=== PATIENT | female | born 1965 | race Caucasian/White ===

== ENCOUNTER → 2016-04-19 | Outpatient (CLI) | payer OTHER ==
[~2016-04-19] MED LIST: ACET-1101 PO; BND25CL PO; CIPR-255 PO; CLON0.1D5 TD; CLON0.5T3 PO; CLOP1TAB15 PO; CLR10 PO; DLC5 PO; ENAL1TAB31 PO; ESTR1.252 PO; FLUT0.15 NAE; FURO-85 PO; HYDR25TA4 PO; INSPMPNVLG; LINA1CAP PO; MAGN400T5 PO; PROM25TA9 PO; ROPI2TAB6 PO; ROSU20TA PO
--- NOTE | 2016-04-19 13:34 | MAMMOGRAPHY REPORT ---
BILATERAL DIGITAL SCREENING MAMMOGRAM TOMOSYNTHESIS WITH CAD: 04/19/2016 CLINICAL HISTORY: Routine screening. Patient has no complaints. TECHNIQUE: Breast tomosynthesis in addition to standard 2D mammography was performed. Current study was also evaluated with a Computer Aided Detection (CAD) system. COMPARISON: Comparison is made to exams dated: 04/16/2015 mammogram, 04/08/2014 mammogram, 07/28/2013 u ltrasound, 02/15/2011 mammogram, 04/03/2013 mammogram - [facility], and 06/30/2008. BREAST COMPOSITION: The tissue of both breasts is heterogeneously dense, which may obscure small ma sses. FINDINGS: No suspicious masses, calcifications, or areas of architectural distortion are noted in e ither breast. There has been no significant interval change compared to prior exams. IMPRESSION: ACR BI-RADS CATEGORY 1: NEGATIVE There is no mammographic evidence of malignancy. A 1 year screening mammogram is recommended. The p atient will receive written notification of the results. Approximately 10% of breast cancers are not detected with mammography. A negative mammographic repor t should not delay biopsy if a clinically suggestive mass is present. Salma Cleaning M.D. ah/:04/19/2016 07:45:13 [employer] Press[employer]: Karlee Hernandez RT(R)(M), [facility] letter sent: Normal 1/2 BI-RADS Code: ACR BI-RADS Category 1: Negative
== END | disposition home or self-care (01) ==
LOC: C.MAMM 07:27
PROVIDERS: ATTEND Obstetrics & Gynecology
DX: Z12.31 Encounter for screening mammogram for malignant neoplasm of breast (principal)

== ENCOUNTER → 2016-06-07 | Outpatient (CLI) | payer OTHER ==
[~2016-06-07] MED LIST changes: +BENZ100C84 PO; -BND25CL PO; +CEPH500C PO; +DIPH25CA48 PO; +LIRA18IN INJ; +METO-157 PO; +PRM9 PO; +VNTHFA/IN INH
== END | disposition home or self-care (01) ==
LOC: C.PAPS 08:51
PROVIDERS: ATTEND Obstetrics & Gynecology
DX: Z01.419 Encounter for gynecological examination (general) (routine) without abnormal findings (principal)

== ENCOUNTER 2017-01-24 22:04 | Emergency (ER) | payer OTHER ==
[~2017-01-24] VITALS: Ht 162.6 cm; Wt 83.4 kg
[~2017-01-24 22:04] MED LIST changes: -BENZ100C84 PO; -CEPH500C PO; -LIRA18IN INJ; -METO-157 PO; -PRM9 PO; -VNTHFA/IN INH
[2017-01-24 22:08] VITALS: Ht 162.6 cm; Wt 83.4 kg
[2017-01-24] MEDS ORDERED: BENZ100C84 PO (22:42)
[2017-01-24] MEDS ORDERED: PRM9 PO (22:42)
[2017-01-24] MEDS ORDERED: CLR10 PO (22:42)
[2017-01-24] MEDS ORDERED: METO-157 PO (22:42)
[2017-01-24] MEDS ORDERED: LIRA18IN INJ (22:42)
[2017-01-24] MEDS ORDERED: VNTHFA/IN INH (22:42)
[2017-01-24 23:11] LABS: BASO % 0.6 %; BASO ABS # 0.04 K/uL (0-0.2); COMPLETE YES; EOS % 1.1 %; HEMATOCRIT 38.5 % (37-47); IG% 0.2 %; LYMPH % 30.9 %; LYMPH ABS # 1.91 K/uL (1.2-3.4); MEAN CELL VOLUME 85.6 fL (80-100); MEAN CORPUSCULAR HEMOGLOBIN 28.2 pg (25-34); MEAN PLATELET VOLUME 9.4 fL (7.4-10.4); MONO % 10.8 %; NEUT % 56.4 %; PLATELET COUNT 259 K/uL (130-400); WHITE BLOOD COUNT 6.19 K/uL (4.8-10.8)
--- NOTE | 2017-01-24 23:18 | DIAGNOSTIC IMAGING REPORT ---
R FOOT MIN 3 VIEWS ROUTINE HISTORY: 51 years-old Female right foot pain at mtp acute mid right foot pain without reported trauma COMPARISON: None available TECHNIQUE: 3 views of the right foot FINDINGS: Bipartite medial and lateral hallux sesamoids. No acute fracture or dislocation identified. Mild marginal spurring of the talonavicular joint. No advanced degenerative changes are seen. There is mild soft tissue swelling diffusely about the foot. Vascular calcifications are noted. IMPRESSION: 1. Soft tissue swelling without acute bony abnormality. 2. Peripheral vascular disease. The above report was generated using voice recognition software. It may contain grammatical, syntax or spelling errors. Electronically signed by: Rodger Geronimo M.D. 01/24/2017 11:17 PM Dictated Date/Time: 01/24/2017 11:15 PM
[2017-01-24 23:33] LABS: BUN/CREATININE RATIO 11.8 (10-20); C-REACTIVE PROTEIN 0.55 mg/dl (0-0.29); CALCIUM 8.4 mg/dl (8.5-10.1); CREATININE 0.9 mg/dl (0.60-1.20); POTASSIUM 3.4 mmol/L (3.5-5.1); URIC ACID 3.6 mg/dl (2.6-7.2)
[2017-01-24 23:36] LABS: ALB/GLOB RATIO 0.7 (0.9-2)
[2017-01-24 23:52] VITALS: TEMP 36.8
[2017-01-25] MEDS ORDERED: CEFTRIAXONE SOD INJ 1 GM ADDVIAL IV STA (00:06)
[2017-01-25] MEDS ORDERED: CEPH500C PO (00:13)
--- NOTE | 2017-01-25 00:41 | EMERGENCY ROOM VISIT NOTE ---
History First contact with patient: 22:24 Chief Complaint: FOOT PAIN Stated Complaint: TENDONITIS RIGHT History of Present Illness The patient is a 51 year old female who presents to the Emergency Room with complaints of pain and swelling of her right foot. The patient has been following with orthopedics for a right foot tendinitis. She has been wearing a walking boot, and believes that her symptoms have been improving. She states tonight she noticed redness and swelling along the MTP joint. She is diabetic with neuropathy, and does not describe distinct pain. She is concerned for possible infection or gout based on the location and she is able to ambulate. She has not had fever or chills. No past history of gout. She rates her current discomfort a 2/10. Review of Systems More than 10 systems were reviewed and otherwise negative with the exception of history of present illness. Past Medical/Surgical History Medical Problems: (1) Diabetic neuropathy (2) Gastric Pacemaker (3) Gastroparesis Family History Hypertension Social History Smoking Status: Never Smoker Marital Status: Housing Status: lives with family Occupation Status: employed Current/Historical Medications Scheduled Cephalexin Monohydrate (Keflex), 500 MG PO TID Clonazepam (Klonopin), 0.5 MG PO BID Clonidine Hcl (Catapres-Tts), 1 PATCH TD WK Clopidogrel (Plavix), 75 MG PO DAILY Enalapril Maleate (Vasotec), 20 MG PO DAILY Estrogens, Conjugated (Premarin), 0.9 MG PO DAILY Furosemide (Lasix), 20 MG PO Q2D Hydrochlorothiazide (Hctz), 25 MG PO Q2D Insulin Aspart (novoLOG INSULIN PUMP ), 60-70 UNITS DAILY Liraglutide (Victoza), 1.2 MG INJ DAILY Metoclopramide (Reglan), 10 MG PO BID Ropinirole (Requip), 2 MG PO TID Rosuvastatin Calcium (Crestor), 20 MG PO DAILY Scheduled PRN Acetaminophen W/ Codeine (Tylenol W/Codeine #3), 1 TAB PO Q8 PRN for Pain Albuterol Hfa (Ventolin Hfa), 2-4 PUFFS INH Q6H PRN for SOB/Wheezing Benzonatate (Tessalon Perles), 100 MG PO TID PRN for Cough Diphenhydramine HCl (Diphenhydramine HCl), 25 MG PO Q8 PRN for Itching Loratadine (Claritin), 10 MG PO DAILY PRN for Seasonal Allergies Promethazine Hcl (Phenergan), 25 MG PO Q4-6 HRS PRN for Nausea or Vomiting Physical Exam Vital Signs Date Time Temp Pulse Resp B/P (MAP) Pulse Ox O2 Delivery O2 Flow Rate FiO2 01/24/17 23:52 36.8 83 16 138/69 98 Room Air 01/24/17 22:08 36.6 85 18 154/83 98 Room Air Physical Exam VITALS: Vitals are noted on the nurse's note and reviewed by myself. Vital signs stable. GENERAL: Well-developed, well-nourished, white female, who is in no acute distress and resting comfortably. Patient is cooperative with the examination. HEART: Regular rate and rhythm without murmurs gallops or rubs. LUNGS: Clear to auscultation bilaterally without wheezes, rales or rhonchi. No retractions or accessory muscle use. MUSCULOSKELETAL: There is mild edema and erythema at the first MTP joint on the right, as well as the plantar aspect in this distribution. There is slight redness. No lymphangitic streaking. The patient does have sensation to the distal toes. Range of motion of the toes and ankle appears normal. Medical Decision & Procedures ER Provider Diagnostic Interpretation: R FOOT MIN 3 VIEWS ROUTINE HISTORY: 51 years-old Female right foot pain at mtp acute mid right foot pain without reported trauma COMPARISON: None available TECHNIQUE: 3 views of the right foot FINDINGS: Bipartite medial and lateral hallux sesamoids. No acute fracture or dislocation identified. Mild marginal spurring of the talonavicular joint. No advanced degenerative changes are seen. There is mild soft tissue swelling diffusely about the foot. Vascular calcifications are noted. IMPRESSION: 1. Soft tissue swelling without acute bony abnormality. 2. Peripheral vascular disease. Laboratory Results 01/24/17 22:45 Red Blood Count 4.50, Mean Corpuscular Volume 85.6, Mean Corpuscular Hemoglobin 28.2, Mean Corpuscular Hemoglobin Concent 33.0, Mean Platelet Volume 9.4, Neutrophils (%) (Auto) 56.4, Lymphocytes (%) (Auto) 30.9, Monocytes (%) (Auto) 10.8, Eosinophils (%) (Auto) 1.1, Basophils (%) (Auto) 0.6, Neutrophils # (Auto ) 3.49, Lymphocytes # (Auto) 1.91, Monocytes # (Auto) 0.67, Eosinophils # (Auto ) 0.07, Basophils # (Auto) 0.04 01/24/17 22:45 Test 01/24/17 22:45 White Blood Count 6.19 K/uL (4.8-10.8) Red Blood Count 4.50 M/uL (4.2-5.4) Hemoglobin 12.7 g/dL (12.0-16.0) Hematocrit 38.5 % (37-47) Mean Corpuscular Volume 85.6 fL (80-100) Mean Corpuscular Hemoglobin 28.2 pg (25-34) Mean Corpuscular Hemoglobin Concent 33.0 g/dl (32-36) Platelet Count 259 K/uL (130-400) Mean Platelet Volume 9.4 fL (7.4-10.4) Neutrophils (%) (Auto) 56.4 % Lymphocytes (%) (Auto) 30.9 % Monocytes (%) (Auto) 10.8 % Eosinophils (%) (Auto) 1.1 % Basophils (%) (Auto) 0.6 % Neutrophils # (Auto) 3.49 K/uL (1.4-6.5) Lymphocytes # (Auto) 1.91 K/uL (1.2-3.4) Monocytes # (Auto) 0.67 K/uL (0.11-0.59) Eosinophils # (Auto) 0.07 K/uL (0-0.5) Basophils # (Auto) 0.04 K/uL (0-0.2) RDW Standard Deviation 37.3 fL (36.4-46.3) RDW Coefficient of Variation 12.0 % (11.5-14.5) Immature Granulocyte % (Auto) 0.2 % Immature Granulocyte # (Auto) 0.01 K/uL (0.00-0.02) Erythrocyte Sedimentation Rate 25 mm/hr (0-21) Anion Gap 4.0 mmol/L (3-11) Est Creatinine Clear Calc Drug Dose 77.3 ml/min Estimated GFR () 85.8 Estimated GFR (Non- 74.0 BUN/Creatinine Ratio 11.8 (10-20) Uric Acid 3.6 mg/dl (2.6-7.2) Calcium Level 8.4 mg/dl (8.5-10.1) Total Bilirubin 0.7 mg/dl (0.2-1) Aspartate Amino Transf (AST/SGOT) 15 U/L (15-37) Alanine Aminotransferase (ALT/SGPT) 15 U/L (12-78) Alkaline Phosphatase 82 U/L (45-117) C-Reactive Protein 0.55 mg/dl (0-0.29) Total Protein 7.1 gm/dl (6.4-8.2) Albumin 3.0 gm/dl (3.4-5.0) Globulin 4.1 gm/dl (2.5-4.0) Albumin/Globulin Ratio 0.7 (0.9-2) Medications Administered Medications (Trade) Dose Ordered Sig/Igor Route Start Time Stop Time Status Last Admin Dose Admin Ceftriaxone Sodium (Rocephin Inj) 1 gm NOW STAT IV 01/25/17 00:06 01/25/17 00:08 DC 01/25/17 00:20 1 GM ED Course Physical exam and history were performed. Nursing notes, EMR, and Medication List were personally reviewed. Patient appears to have right foot pain and swelling and redness for essentially the past one day. She has been wearing a walking boot for tendinitis in this area. X-ray was performed and does not show acute bony abnormality. IV access was established and labs were obtained. The patient's blood work is as above and was reviewed. She does not have a significantly elevated white blood cell count, gross anemia, bandemia, or significant electrolyte imbalance. Uric acid is negative. Sedimentation rate and CRP are slightly elevated. Overall the patient does appear well for discharge home. I do not suspect a distinct joint infection or gout. There is no concern for osteomyelitis at this point. The patient may be developing an early cellulitis in this area, which could be from the walking boot rubbing in this area. I will give her a dose of IV Rocephin here in the department, and a continuation course of Keflex. The patient is already followed with orthopedics, and I will refer her back to their service. She was otherwise invited back to the ER with any new, worsening, or concerning symptoms. The chart was completed utilizing [employer] Voice Recognition Software. Grammatical errors, random word insertions, pronoun errors, and incomplete sentences are an occasional consequence of this system due to software limitations, ambient noise, and hardware issues. Any formal questions or concerns about the content, text, or information contained within the body of this dictation should be directly addressed to the provider for clarification. . Medical Decision Differential diagnosis: Etiologies such as cellulitis, abscess, osteomyelitis, tendinitis, MRSA infection, DVT, necrotizing fasciitis, dermatitis, drug eruption, as well as others were entertained.. Blood Pressure Screening Blood pressure disposition: Elevated BP felt to be situational, Referred to PCP Impression Primary Impression: Right foot pain Departure Information Dispostion Home / Self-Care Prescriptions Cephalexin Monohydrate (Keflex) 500 Mg Cap 500 MG PO TID for 7 Days, #21 CAP Prov: Calos Artis PA-C 01/25/17 Forms HOME CARE DOCUMENTATION FORM, IMPORTANT VISIT INFORMATION Patient Instructions My [facility] Additional Instructions You were seen and evaluated today on an emergency basis only. This is not a substitute for, or an effort to provide, complete comprehensive medical care. It is not possible to recognize and treat all injuries or illnesses in a single emergency department visit. For this reason it is recommended that you followup with orthopedics within the next week for recheck of your condition. Call in the morning and let them know you were seen in the ER to help arrange for an appointment. Cephalexin(Keflex) 500mg: Take one pill 3 times daily for 7 days for possible infection. All antibiotics can cause diarrhea. If this occurs and you feel worse or it does not resolve in 1-2 days follow up with your doctor or return to the Emergency Department as this could be signs of serious underlying problems. Any medication can cause an allergic reaction, stop the pills immediately and return to the ER for rash, hives, breathing difficulties, or swelling. You are welcome to return to the emergency department anytime with new, worsening, or concerning symptoms.
[2017-01-25 00:45] VITALS: BP 128/59; PULSE 82; O2SAT 98
== END 2017-01-25 00:46 | disposition home or self-care (01) ==
LOC: C.EDB 22:05 → C.EDC 01-25 00:46
DX: M79.671 Pain in right foot (principal); E11.40 Type 2 diabetes mellitus with diabetic neuropathy, unspecified; K31.84 Gastroparesis; Z79.4 Long term (current) use of insulin; Z79.899 Other long term (current) drug therapy; Z82.49 Family history of ischemic heart disease and other diseases of the circulatory system

== ENCOUNTER → 2017-06-07 | Outpatient (CLI) | payer OTHER ==
[~2017-06-07] MED LIST changes: +BENZ100C84 PO; -CIPR-255 PO; -DLC5 PO; -ESTR1.252 PO; -FLUT0.15 NAE; -LINA1CAP PO; +LIRA18IN INJ; -MAGN400T5 PO; +METO-157 PO; +PRM9 PO; +VNTHFA/IN INH
--- NOTE | 2017-06-08 07:46 | MAMMOGRAPHY REPORT ---
BILATERAL DIGITAL SCREENING MAMMOGRAM TOMOSYNTHESIS WITH CAD: 06/07/2017 CLINICAL HISTORY: Routine screening. Patient has no complaints. TECHNIQUE: Breast tomosynthesis in addition to standard 2D mammography was performed. Current study was also evaluated with a Computer Aided Detection (CAD) system. COMPARISON: Comparison is made to exams dated: 04/19/2016 mammogram, 04/16/2015 mammogram, 04/08/2014 m ammogram, 07/28/2013 ultrasound, 04/03/2013 mammogram, and 02/15/2011 mammogram - [facility] [address] [facility]. BREAST COMPOSITION: The tissue of both breasts is heterogeneously dense, which may obscure small mas ses. FINDINGS: No suspicious masses, calcifications, or areas of architectural distortion are noted in ei ther breast. There has been no significant interval change compared to prior exams. Scattered bilater al benign-appearing calcifications are not significantly changed. IMPRESSION: ACR BI-RADS CATEGORY 2: BENIGN There is no mammographic evidence of malignancy. A 1 year screening mammogram is recommended. The pa tient will receive written notification of the results. Approximately 10% of breast cancers are not detected with mammography. A negative mammographic report should not delay biopsy if a clinically suggestive mass is present. aSlma Cleaning M.D. /:06/07/2017 14:26:11 Contact Clerk: Karlee RIVERA)(M), [facility] letter sent: Normal 1/2 BI-RADS Code: ACR BI-RADS Category 2: Benign
== END | disposition home or self-care (01) ==
LOC: C.MAMM 13:47
PROVIDERS: ATTEND Obstetrics & Gynecology
DX: Z12.31 Encounter for screening mammogram for malignant neoplasm of breast (principal)

== ENCOUNTER → 2017-10-02 | Day surgery (SDC) | payer OTHER ==
[2017-09-26 14:10] VITALS: Ht 162.6 cm; Wt 75.9 kg
[~2017-10-02] VITALS: Ht 162.6 cm; Wt 75.9 kg
[~2017-10-02] MED LIST changes: +AMT24 PO; -BENZ100C84 PO; -CLON0.5T3 PO; +DEXTROSE 50% 50 ML SYR ONE; +DIPH1TAB87 PO; -DIPH25CA48 PO; +FLUT0.15 NAE; -HYDR25TA4 PO; +KLN/5 PO; +LIDOCAINE HCL 2% 2 ML VIAL (20MG/ML) ONE; +MIDAZOLAM HCL 1 MG/ML 2ML VIAL ONE; +ONDA4TAB46 PO; +ONDANSETRON INJ 2 MG/ML 2 ML VIAL ONE; +PROPOFOL IV EMULSION 10 MG/ML 20 ML VIAL ONE; +SALI0.6510 NAE
[2017-10-02 13:14] VITALS: TEMP 36.6
--- NOTE | 2017-10-02 14:02 | Endo History and Physical ---
History & Physical Date of Service: Oct 02, 2017. Chief Complaint: Colitis Referring Physician: Dr Lynn Ha ([facility]), Dr Aguillon. History of Present Illness 52 yo presenting for colonoscopy for evaluation of abnormal CT scan and ischemic colitis in the past. Past Medical History Diabetes, Asthma, Hypertension Past Surgical History Hx Cardiac Surgery: No Hx Abdominal Surgery: Yes (Gastric Pacemaker, LAP TEJAS, APPY, MELO BSO, BOWEL OBSTRUCTION SX) Hx of Implantable Prosthesis: No Hx Post-Op Nausea and Vomiting: No Hx Cancer Surgery: No Hx Thoracic Surgery: No Hx Orthopedic: No Hx Urinary Tract Surgery: No Family History None Social History Smoking Status: Never Smoker Hx Substance Use: No Hx Alcohol Use: Yes (Occassional wine) Allergies Coded Allergies: Aspirin (Verified Allergy, Severe, SWELLING, 10/02/17) SWELLING Ibuprofen (Verified Allergy, Severe, SWELLING, 10/02/17) Penicillins (Verified Allergy, Severe, SWELLING, 10/02/17) SWELLING Iodine (Verified Allergy, Mild, ITCHY, 10/02/17) Adhesives (Verified Allergy, Unknown, TAPE, 10/02/17) Sulfamethoxazole w/Trimethoprim (Verified Allergy, Unknown, unknown, ) Current Medications Reported Home Medications Medications Dose Route/Sig Max Daily Dose Days Date Category Dose Instructions [place] Nasal [place] (Saline) 0.65 % Spr 2 Sprays SARAN DAILY PRN 09/26/17 Reported Benadryl Allergy (Diphenhydramine Hcl) 25 Mg Tab 1 Tab PO DAILY PRN 09/26/17 Reported Lasix (Furosemide) 20 Mg Tab 20 Mg PO Q2D 09/26/17 Reported Flonase Allergy Relief (Fluticasone Propionate (Nasal)) 50 Mcg/Act Spr 2 Sprays SARAN DAILY PRN 09/26/17 Reported Zofran (Ondansetron HCl) 4 Mg Tab 4 Mg PO Q8 PRN 09/26/17 Reported Amitiza (Lubiprostone) 24 Mcg Cap 24 Mcg PO BID 09/26/17 Reported Victoza (Liraglutide) 18 Mg/3 Ml Inj 1.2 Mg INJ DAILY 01/24/17 Reported Ventolin Hfa (Albuterol) 200 Puffs/50025 Mcg Aers 2-4 Puffs INH Q6H PRN 01/24/17 Reported Reglan (Metoclopramide HCl) 10 Mg Tab 10 Mg PO BID 01/24/17 Reported Claritin (Loratadine) 10 Mg Tab 10 Mg PO DAILY PRN 01/24/17 Reported Premarin (Estrogens, Conjugated) 0.9 Mg Tab 0.9 Mg PO DAILY 90 01/24/17 Reported novoLOG INSULIN PUMP (Insulin Aspart) 1 Ea Inj 60-70 Units DAILY 12/16/14 Reported via insulin pump Catapres-Tts (Clonidine Hcl) 0.1 Mg/24 Hr Dis 1 Patch TD WK 12/16/14 Reported Tylenol W/Codeine #3 (Acetaminophen W/ Codeine) 1 Tab Tab 1 Tab PO Q8 PRN 12/16/14 Reported Vasotec (Enalapril Maleate) 20 Mg Tab 20 Mg PO DAILY 12/16/14 Reported Requip (Ropinirole HCl) 2 Mg Tab 2 Mg PO TID 12/16/14 Reported Phenergan (Promethazine HCl) 25 Mg Tab 25 Mg PO Q4-6 HRS PRN 12/16/14 Reported Crestor (Rosuvastatin Calcium) 20 Mg Tab 20 Mg PO DAILY 12/16/14 Reported Plavix (Clopidogrel Bisulfate) 75 Mg Tab 75 Mg PO DAILY 11/05/10 Reported Klonopin (Clonazepam) 0.5 Mg Tab 0.5 Mg PO BID 07/18/08 Reported Vital Signs Weight (Kilograms): 75.91 Height (Feet): 5 Height (Inches): 4 Date Time Temp Pulse Resp B/P (MAP) Pulse Ox O2 Delivery O2 Flow Rate FiO2 10/02/17 13:14 36.6 84 18 158/77 (104) 99 Room Air Physical Exam General Appearance: WD/WN, no apparent distress Respiratory/Chest: Respiratory effort: no dyspnea Auscultation: breath sounds normal, CTA except as noted Cardiovascular: Apical Impulse: not displaced Heart Auscultation: RRR, normal S1, normal S2 Abdomen: Bowel Sounds: normal Inspection & Palpation: soft, non-distended, no tenderness, guarding & rebound Assessment and Plan 52 yo presenting for evaluation of prior ischemic colitis, chronic constipation , and gastroparesis.
--- NOTE | 2017-10-02 14:49 | GI REPORT ---
Patient Name: Chari Stokes Procedure Date: 10/02/2017 2:12 PM Date of : 1965 Admit Type: Outpatient Age: 52 Gender: Female Attending MD: Lico Wesley MD Procedure: Colonoscopy Providers: Lico Wesley MD Referring MD: Pedro Aguillon Indications: Abnormal CT of the GI tract Medicines: Monitored Anesthesia Care Complications: No immediate complications. Estimated blood loss: None. Estimated Blood Loss: Estimated blood loss: none. Procedure: Pre-Anesthesia Assessment: - Pre-Anesthesia Assessment: - Prior to the procedure, a History and Physical was performed, and patient medications, allergies and sensitivities were reviewed. The patient's tolerance of previous anesthesia was reviewed. Please see [place] for complete details. - The risks and benefits of the procedure and the sedation options and risks were discussed with the patient. All questions were answered and informed consent was obtained. - Patient identification and proposed procedure were verified prior to the procedure by the physician and the nurse. The procedure was verified in the pre-procedure area in the procedure room. After obtaining informed consent, the endoscope was passed carefully and meticuously under direct vision and only advanced when the lumen was clearly identified, C02 insuflation was utilized throughout the entirity of the procedure. Throughout the procedure, the patient's blood pressure, pulse, and oxygen saturations were monitored continuously. After I obtained informed consent, the scope was passed under direct vision. Throughout the procedure, the patient's blood pressure, pulse, and oxygen saturations were monitored continuously. The scope was introduced through the anus and advanced to the terminal ileum, with identification of the appendiceal orifice and IC valve. The colonoscopy was performed without difficulty. The patient tolerated the procedure well. The quality of the bowel preparation was good. Findings: A 6 mm polyp was found in the ascending colon. The polyp was sessile. The polyp was removed with a cold snare. Resection and retrieval were complete. Multiple small-mouthed diverticula were found in the sigmoid colon. The terminal ileum appeared normal. Internal hemorrhoids were found during retroflexion. Impression: - One 6 mm polyp in the ascending colon, removed with a cold snare. Resected and retrieved. - Diverticulosis in the sigmoid colon. - The examined portion of the ileum was normal. - Internal hemorrhoids. Recommendation: - Repeat colonoscopy date to be determined after pending pathology results are reviewed for surveillance. - Discharge patient to home (with escort). - Return to referring physician as previously scheduled. - Follow up as arranged with [facility] Lico Wesley MD 10/02/2017 2:49:20 PM This report has been signed electronically. Note Initiated On: 10/02/2017 2:12 PM Number of Addenda: 0 I attest to the content of the Intraoperative Record and orders documented therein, exceptions below {[id number]}
--- NOTE | 2017-10-02 15:06 | Discharge Instructions ---
Endoscopy Patient Instructions Date / Procedure(s) Performed Oct 02, 2017. Colonoscopy Allergy Information Coded Allergies: Aspirin (Verified Allergy, Severe, SWELLING, 10/02/17) SWELLING Ibuprofen (Verified Allergy, Severe, SWELLING, 10/02/17) Penicillins (Verified Allergy, Severe, SWELLING, 10/02/17) SWELLING Iodine (Verified Allergy, Mild, ITCHY, 10/02/17) Adhesives (Verified Allergy, Unknown, TAPE, 10/02/17) Sulfamethoxazole w/Trimethoprim (Verified Allergy, Unknown, unknown, ) Discharge Date / Findings Oct 02, 2017. Findings: A 6 mm polyp was found in the ascending colon. The polyp was sessile. The polyp was removed with a cold snare. Resection and retrieval were complete. Multiple small-mouthed diverticula were found in the sigmoid colon. The terminal ileum appeared normal. Internal hemorrhoids were found during retroflexion. Impression: - One 6 mm polyp in the ascending colon, removed with a cold snare. Resected and retrieved. - Diverticulosis in the sigmoid colon. - The examined portion of the ileum was normal. - Internal hemorrhoids. Recommendation: - Repeat colonoscopy date to be determined after pending pathology results are reviewed for surveillance. - Discharge patient to home (with escort). - Return to referring physician as previously scheduled. - Follow up as arranged with [facility] Provider Instructions Activity Restrictions - No exercising or heavy lifting for 24 hours. - Do not drink alcohol the day of the procedure. - Do not drive a car or operate machinery until the day after the procedure. - Do not make any important decisions or sign important papers in 24 hours after the procedure. Following Day: - Return to full activity which may include returning to work/school. Diet Start your diet with liquids and light foods (jello, soup, juice, toast). Then eat your usual diet if not nauseated. Treatment For Common After Affects For mild abdominal pain, bloating, or excessive gas: - Rest - Eat lightly - Lie on right side Follow-Up Information Follow-up with Dr Lynn Ha ([facility]), Dr Aguillon. as scheduled Anesthesia Information What You Should Know You have had a procedure that required some medicine to reduce anxiety and discomfort. This treatment is called moderate sedation. After receiving the treatment, you may be sleepy, but you will be able to breathe on your own. The effects of the treatment may last for several hours. Follow these instructions along with Activity/Diet recommendations noted above: * Do NOT do anything where dizziness or clumsiness would be dangerous. * Rest quietly at home today, then you can be up and about tomorrow. * Have a responsible person stay with you the rest of today. * You may have had an I.V. today. If so, you may take the dressing off later today. Recommendations Call your doctor if: * Trouble breathing * Continuous vomiting for more than 24 hours * Temperature above 101 degrees * Severe abdominal pain or bloating * Pain not relieved by pain medicine ordered * There is increased drainage or redness from any incision * A large amount of rectal bleeding greater than 2-3 tablespoons. (If you had a polyp/s removed or have hemorrhoids, a small amount of blood - from the rectum is to be expected.) * You have any unanswered questions or concerns. IN THE EVENT OF A SERIOUS EMERGENCY, GO TO THE NEAREST EMERGENCY ROOM Your discharge instructions were prepared by provider Lico Wesley. Patient Instructions Signature Page Chari Stokes Patient (or Guardian) Signature/Date: I have read and understand the instructions given to me by my caregivers. Caregiver/RN/Doctor Signature/Date: The above-named patient and/or guardian has received patient instructions on this date. + Original Patient Signature Page (only) stays with chart. Please make copy for patient.
--- NOTE | 2017-10-02 15:27 | Anesthesiology Progress Note ---
Anesthesia Post Op Note Date & Time Oct 02, 2017 at 15:27 Vital Signs Pain Intensity: 0 Vital Signs Past 12 Hours Date Time Temp Pulse Resp B/P (MAP) Pulse Ox O2 Delivery O2 Flow Rate FiO2 10/02/17 15:25 75 20 135/84 (101) 99 Room Air 10/02/17 15:09 77 20 109/62 (78) 99 Room Air 10/02/17 14:54 70 18 123/64 (83) 99 Room Air 10/02/17 13:14 36.6 84 18 158/77 (104) 99 Room Air Notes Mental Status: alert / awake / arousable, participated in evaluation Pt Amnestic to Procedure: Yes Nausea / Vomiting: adequately controlled Pain: adequately controlled Airway Patency, RR, SpO2: stable & adequate BP & HR: stable & adequate Hydration State: stable & adequate Anesthetic Complications: no major complications apparent
--- NOTE | 2017-10-02 15:51 | DIAGNOSTIC IMAGING REPORT ---
ABDOMEN 2VIEW W/PA CHEST RTN CLINICAL HISTORY: 52 years-old Female presenting with abd pain post endoscopy. TECHNIQUE: Portal upright view of the chest and supine and left lateral decubitus views abdomen were obtained. COMPARISON: CT from 08/22/2017. FINDINGS: Cardiomediastinal silhouette normal. Lungs and pleural spaces clear. A 2-lead pacing device projects over the left mid abdomen with leads coursing to the epigastrium. Cholecystectomy clips noted. Nonobstructive bowel gas pattern. No pneumoperitoneum. Allowing for bowel gas and stool, no calcifications to suggest nephrolithiasis. Few left hemipelvic phleboliths. Osseous structures normal. IMPRESSION: 1. No acute cardiopulmonary disease. 2. No radiographic evidence of free air or bowel obstruction. Electronically signed by: Jeremias Patel M.D. 10/02/2017 3:49 PM Dictated Date/Time: 10/02/2017 3:48 PM
[2017-10-02 16:00] VITALS: BP 122/70; PULSE 78; O2SAT 100
== END | disposition home or self-care (01) ==
LOC: C.GI 12:36
PROVIDERS: ATTEND Internal Medicine
DX: D12.2 Benign neoplasm of ascending colon (principal); R93.3 Abnormal findings on diagnostic imaging of other parts of digestive tract; K59.09 Other constipation; K31.84 Gastroparesis; E11.65 Type 2 diabetes mellitus with hyperglycemia; E11.43 Type 2 diabetes mellitus with diabetic autonomic (poly)neuropathy; G25.81 Restless legs syndrome; K57.30 Diverticulosis of large intestine without perforation or abscess without bleeding; K64.9 Unspecified hemorrhoids; I25.10 Atherosclerotic heart disease of native coronary artery without angina pectoris; J45.909 Unspecified asthma, uncomplicated; I10 Essential (primary) hypertension; Z96.89 Presence of other specified functional implants; Z88.6 Allergy status to analgesic agent; Z88.0 Allergy status to penicillin; Z88.8 Allergy status to other drugs, medicaments and biological substances; Z91.041 Radiographic dye allergy status; Z88.2 Allergy status to sulfonamides; Z79.899 Other long term (current) drug therapy; Z79.4 Long term (current) use of insulin; Z79.02 Long term (current) use of antithrombotics/antiplatelets

== ENCOUNTER 2019-08-05 16:16 | Observation (INO) ==
[2019-08-05] MEDS ORDERED: SODIUM CHLORIDE 0.9% 500 ML IV ONE (17:03)
[2019-08-05 17:22] LABS: Basophils # (auto) 0.03 K/uL (0-0.2); Basophils % (auto) 0.6 %; Eosinophils # (auto) 0.11 K/uL (0-0.5); Eosinophils % (auto) 2.2 %; Hematocrit (blood only) 38.6 % (37-47); Hemoglobin 12.9 g/dL (12.0-16.0); Immature Granulocytes # (auto) 0.01 K/uL (0.00-0.02); Immature Granulocytes % (auto) 0.2 %; Lymphocytes # (auto) 1.62 K/uL (1.2-3.4); Lymphocytes % (auto) 31.7 %; Mean Corpuscular Hemoglobin 28.3 pg (25-34); Mean Corpuscular Hgb Conc 33.4 g/dL (32-36); Mean Corpuscular Volume 84.6 fL (80-100); Mean Platelet Volume 9.1 fL (7.4-10.4); Monocytes # (auto) 0.47 K/uL (0.11-0.59); Monocytes % (auto) 9.2 %; Neutrophils # (auto) 2.87 K/uL (1.4-6.5); Neutrophils % (auto) 56.1 %; Platelet Count 215 K/uL (130-400); RDW Coefficient of Variation 12.1 % (11.5-14.5); RDW Standard Deviation 37.4 fL (36.4-46.3); Red Blood Count 4.56 M/uL (4.2-5.4); White Blood Count 5.11 K/uL (4.8-10.8)
--- NOTE | 2019-08-05 17:25 | XRay Report ---
XR chest 1V portable HISTORY: weakness COMPARISON: Chest 10/02/2017. FINDINGS: The lungs are clear. Cardiac silhouette is normal in size. No pleural effusions. No pneumot horax. IMPRESSION: No acute process. ACT 112: Negative or not required by law. Electronically signed by: Antonio Zapien M.D. 08/05/2019 5:23 PM
[2019-08-05 17:30] LABS: Alanine Aminotransferase 19 U/L (12-78); Albumin Level 3.2 gm/dl (3.4-5.0); Aspartate Aminotransferase 12 U/L (15-37); BUN Creatinine Ratio 8.3 (10-20); Blood Urea Nitrogen 8 mg/dl (7-18); Calcium 8.6 mg/dl (8.5-10.1); Carbon Dioxide 29 mmol/L (21-32); Chloride 101 mmol/L (98-107); Creatinine Clr Calc Pharmacy 68.7 ml/min; Est GFR (African American) 78.7; Est GFR (Non-African American) 67.9; Glucose 269 mg/dl (70-99); Magnesium 1.8 mg/dl (1.8-2.4); Potassium 3.3 mmol/L (3.5-5.1); Sodium 136 mmol/L (136-145)
[2019-08-05 17:33] LABS: INR 0.9 (0.9-1.1); Partial Thromboplastin Time 28.2 Seconds (21.0-31.0); Prothrombin Time 9.8 Seconds (9.0-12.0)
[2019-08-05] MEDS ORDERED: DiphenhydrAMINE HCL 50 MG/ML VIAL IV STA (17:34)
[2019-08-05] MEDS ORDERED: DEXAMETHASONE **PF** INJ 10 MG/ML VIAL IV ONE (17:34)
[2019-08-05 17:41] LABS: Albumin Globulin Ratio 0.7 (0.9-2); Alkaline Phosphatase 99 U/L (45-117); Bilirubin,Total 0.5 mg/dl (0.2-1); Globulin 4.4 gm/dl (2.5-4.0); NT Pro B Type Natriuretic Pept 127 pg/ml (0-900); Phosphorus 2.2 mg/dl (2.5-4.9); Total Protein 7.6 gm/dl (6.4-8.2); Troponin I < 0.015 ng/ml (0-0.045)
[2019-08-05] MEDS ORDERED: OPTIRAY 320 125ml IV PRN (18:06)
[2019-08-05 18:38] LABS: Appearance Urine Clear (Clear); Bacteria Urine Automated Negative (Negative); Bilirubin Urine Negative (Negative); Blood Urine Trace (Negative); Cast Urine Automated 0 /lpf (0-5); Color Urine Yellow; Glucose Urine UA 3+ (Negative); Ketones Urine Negative (Negative); Leukocyte Esterase Urine Negative (Negative); Nitrite Urine Negative (Negative); Protein Urine Negative (Negative); RBC Urine Automated 0-4 /hpf (0-4); Specific Gravity Urine 1.017 (1.000-1.030); Urobilinogen Urine Negative (Negative); WBC Urine Automated 0 /hpf (0-5)
[2019-08-05] MEDS ORDERED: POTASSIUM CHLORIDE 20 MEQ TABCR PO STA (18:38)
[2019-08-05] MEDS ORDERED: POT PHOSPHATE MONOBASIC W/ SOD TAB PO STA (18:38)
--- NOTE | 2019-08-05 18:51 | CT Scan Report ---
HEAD CT NONCONTRAST CT DOSE: 1066.77 mGy.cm HISTORY: Stroke symptoms. Stroke evaluation TECHNIQUE: Multiaxial CT images of the head were performed without the use of intravenous contrast. A utomated exposure control was utilized for this study. A dose lowering technique was utilized adheri ng to the principles of ALARA. Comparison: None. Findings: The paranasal sinuses and mastoid air cells are clear. The calvarium and skull base are int act. The ventricles and sulci are within normal limits. There is no mass, hematoma, midline shift, or acute infarct. Impression: No acute intracranial abnormality. ACT 112: Negative or not required by law. Electronically signed by: Antonio Zapien M.D. 08/05/2019 6:49 PM
--- NOTE | 2019-08-05 18:58 | CT Scan Report ---
HEAD & NECK CTA HISTORY: Throat symptoms. Stroke evaluation TECHNIQUE: Multiaxial CT images of the head were performed following the intravenous administration o f contrast to evaluate the major cerebral vessels. Multiaxial CT images of the neck were also perform ed following the intravenous administration of contrast to evaluate the major cervical vessels. Maxim um intensity projection images were also obtained. A dose lowering technique was utilized adhering to the principles of ALARA. COMPARISON: None. FINDINGS: There is no mass, hematoma, midline shift, or acute infarct. Visualized intracranial internal carotid arteries, distal vertebral arteries, and basilar artery are widely patent. There is no significant s tenosis, occlusion, or aneurysm seen within the bilateral ACAs, MCAs, or refrigerated cargo clerk. Mild calcified plaque within the bilateral carotid siphons. The major dural venous sinuses appear patent. The aortic arch and proximal great vessels are widely patent. There is no significant stenosis, occ lusion, or dissection identified within the bilateral common carotid, internal carotid, or vertebral arteries. The right vertebral artery is hypoplastic in comparison to the left. Mild calcified plaque within the bilateral carotid bifurcations. IMPRESSION: 1. No significant stenosis, occlusion, or aneurysm within the [place]. 2. No significant stenosis, occlusion, or dissection identified within the carotid or vertebral arter ies. ACT 112: Negative or not required by law. Electronically signed by: Antonio Zapien M.D. 08/05/2019 6:56 PM
--- NOTE | 2019-08-05 18:58 | CT Scan Report ---
HEAD & NECK CTA HISTORY: Throat symptoms. Stroke evaluation TECHNIQUE: Multiaxial CT images of the head were performed following the intravenous administration o f contrast to evaluate the major cerebral vessels. Multiaxial CT images of the neck were also perform ed following the intravenous administration of contrast to evaluate the major cervical vessels. Maxim um intensity projection images were also obtained. A dose lowering technique was utilized adhering to the principles of ALARA. COMPARISON: None. FINDINGS: There is no mass, hematoma, midline shift, or acute infarct. Visualized intracranial internal carotid arteries, distal vertebral arteries, and basilar artery are widely patent. There is no significant s tenosis, occlusion, or aneurysm seen within the bilateral ACAs, MCAs, or resource program teacher. Mild calcified plaque within the bilateral carotid siphons. The major dural venous sinuses appear patent. The aortic arch and proximal great vessels are widely patent. There is no significant stenosis, occ lusion, or dissection identified within the bilateral common carotid, internal carotid, or vertebral arteries. The right vertebral artery is hypoplastic in comparison to the left. Mild calcified plaque within the bilateral carotid bifurcations. IMPRESSION: 1. No significant stenosis, occlusion, or aneurysm within the [place]. 2. No significant stenosis, occlusion, or dissection identified within the carotid or vertebral arter ies. ACT 112: Negative or not required by law. Electronically signed by: Antonio Zapien M.D. 08/05/2019 6:56 PM
[2019-08-05] MEDS: POTASSIUM CHLORIDE / WTR 10 MEQ/100 ML PLCT IV SCH (19:04)
--- NOTE | 2019-08-05 21:33 | History & Physical Report ---
Date of Service August 05, 2019 Assessment & Plan (1) Stroke-like symptoms: LUE apraxia by description poss CVA hypoglycemia possibly contributory hx nonocclusive CAD, SMA stenosis status post stent placement hypertension, elevated possibly secondary to intracranial process hyperlipidemia on statin Rx DM1 on an insulin pump, well-controlled as of recent outpatient hemoglobin A1c of 6.03 Jul 2019 chronic abdominal pain 2 to DM gastroparesis sp pacemaker placement, at baseline on meds Hypokalemia secondary to home insulin OBS Medical telemetry Neurochecks Continue patient's Plavix for stroke prevention Repeat CT head in a.m. RE strokelike symptoms (MRI unfortunately precluded by gastric pacemaker.) Permissive hypertension until stroke ruled out Neurology consult RE strokelike symptoms Accu-Cheks every 4 hours for now, pharmacy glycemic control consult Replace potassium DVT prophylaxis per Lovenox subcu Full code Text document was generated using [employer] voice recognition software. It may contain grammatical or spelling errors. Kindly contact undersigned for clarification of any documentation item in question. History of Present Illness No recent change in insulin pump regimen Chief Complaint: Left arm/hand not feeling right Primary Care Provider: Pedro Aguillon MD History obtained from the patient and records. Medical history significant for History obtained from the patient and records. Medical history significant for nonocclusive CAD, SMA stenosis status post stent placement, hypertension, hyperlipidemia,DM1 on an insulin pump, chronic abdominal pain 2 to DM gastroparesis sp pacemaker placement, restless leg syndrome, Last confinement October 2017 for colitis. Around 8 AM this morning, patient started not feeling well. No chest pain, no S OB. Blood sugar on self check noted to be 39. Patient sat down on the recliner and started consuming juice and cookies. No recent change in insulin pump regimen as per patient. Appetite at baseline. Patient woke up about an hour later on the recliner. BSG on recheck in the 100s. While cutting her fingernails, paatient later felt like her left hand/arm was not feeling right, as if her "left hand was not listening to her brain." On and off numbness. No chest pain, no S OB. No headache, no neck pain. No recent trauma. No prior episodes. Patient's contacted PCP who subsequently directed patient to ER for evaluation. On and off LUE symptoms at the ER. At one point, BSG was noted to be 40s at the ER. MEDICAL HISTORY: As above SURGERIES: She had vascular procedures, cholecystectomy, hysterectomy, appendectomy, eye surgery, gastric stimulator device placement. FAMILY HISTORY: There is a family history of diabetes, heart disease. 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 Allergies Allergy/AdvReac Type Severity Reaction Status Date / Time aspirin Allergy Severe SWELLING Verified 08/05/19 17:54 doxycycline Allergy Severe Hives Verified 08/05/19 17:54 ibuprofen Allergy Severe SWELLING Verified 08/05/19 17:54 Penicillins Allergy Severe SWELLING Verified 08/05/19 17:54 iodine Allergy Mild ITCHY Verified 08/05/19 17:54 adhesive Allergy Unknown TAPE Verified 08/05/19 17:54 Bactrim Allergy Unknown unknown Verified 10/02/17 14:18 sulfamethoxazole Allergy Unknown Unknown Verified 08/05/19 17:54 trimethoprim Allergy Unknown Unknown Verified 08/05/19 17:54 Iodinated Contrast Media Allergy . Verified 08/05/19 17:54 tolmetin [From Tolectin] Allergy Unknown Verified 08/05/19 17:54 Home Medications Home Medications Medication Instructions Recorded Confirmed Type acetaminophen-codeine 1 tab PO Q8H PRN 11/15/17 08/05/19 History [Tylenol-Codeine #3] albuterol sulfate [Ventolin HFA] 2 puff INHALATION Q4H PRN 11/15/17 08/05/19 History clonazepam [Klonopin] 0.5 mg PO BID 11/15/17 08/05/19 History clopidogrel [Plavix] 75 mg PO DAILY 11/15/17 08/05/19 History diphenhydramine HCl [Benadryl] 25 mg PO Q8H PRN 11/15/17 08/05/19 History enalapril maleate 20 mg PO DAILY 11/15/17 08/05/19 History fluticasone propionate [Flonase 2 spray INTRANASAL DAILY PRN 11/15/17 08/05/19 History Allergy Relief] loratadine [Claritin] 10 mg PO DAILY PRN 11/15/17 08/05/19 History metoclopramide HCl [Reglan] 10 mg PO BIDM 11/15/17 08/05/19 History ondansetron HCl 4 mg PO TID PRN 11/15/17 08/05/19 History promethazine 25 mg PO Q6H PRN 11/15/17 08/05/19 History ropinirole 2 mg PO HS 11/15/17 08/05/19 History rosuvastatin [Crestor] 20 mg PO DAILY 11/15/17 08/05/19 History sodium chloride [[place] Nasal] 2 spray INTRANASAL DIRECTED PRN 11/15/17 08/05/19 History insulin lispro [Humalog U-100 See Rx Instructions .ROUTE .COMPLEX 11/16/17 08/05/19 History Insulin] dicyclomine 10 mg PO TID PRN #90 cap 11/19/17 08/05/19 Rx conjugated estrogens 0.9 mg tablet 0.9 mg PO DAILY #90 tab 02/27/19 08/05/19 Rx furosemide 20 mg tablet 20 mg PO QAM 05/08/19 08/05/19 History linaclotide 72 mcg capsule 72 mcg PO DAILY 05/08/19 08/05/19 History dulaglutide [Trulicity] 0.75 mg SUBCUT WK 08/05/19 08/05/19 History gabapentin 100 mg PO BID 08/05/19 08/05/19 History prucalopride [Motegrity] 2 mg PO DAILY 08/05/19 08/05/19 History Past Med/Surg History Social History Preferred Language: Kiswahili Communication Ability: Effective Gold Plater Required: No Beliefs That Will Affect Care: None Current Living Situation: Spouse and Family Other Information That Helps Us Care for You: No Feels Safe at Home: Yes Safety Concerns: Feels Safe At This Time Smoking Status: Never smoker Hx Alcohol Use: Yes Hx Substance Use: No Review of Systems Review of Systems: As per HPI, all 10 systems reviewed, all other ROS negative Physical Exam Physical Exam: GENERAL: Comfortable, slightly anxious, no respiratory distress SKIN: Normal color, warm HEENT: Bespectacled, [place] palpebral conjunctivae, no ptosis, dry buccal mucosa NECK : Supple, no tenderness CHEST : CTA, no tenderness HEART : RRR, no obvious murmurs ABDOMEN: Some distention, nontender EXTREMITIES : Minimal LE swelling, no LE tenderness, no other conspicuous deformities noted NEUROLOGIC : Coherent, no facial asymmetry, no pronator drift, no other gross focality Results & Data Results & Data ([facility] [place]) Vital Signs (Past 12 Hours) Vital Signs Temp Pulse Pulse Resp BP BP Pulse Ox 08/05/19 20:30 75 18 08/05/19 20:00 72 14 08/05/19 19:51 75 18 161/79 H 08/05/19 19:30 75 21 08/05/19 19:05 78 16 08/05/19 19:04 78 16 177/74 H 08/05/19 18:26 79 18 157/85 H 97 08/05/19 16:17 36.5 C 84 18 177/77 H 97 Laboratory Results Laboratory Results WBC 5.11 K/uL (4.8-10.8) 08/05/19 16:55 RBC 4.56 M/uL (4.2-5.4) 08/05/19 16:55 Hgb 12.9 g/dL (12.0-16.0) 08/05/19 16:55 Hct 38.6 % (37-47) 08/05/19 16:55 MCV 84.6 fL (80-100) 08/05/19 16:55 MCH 28.3 pg (25-34) 08/05/19 16:55 MCHC 33.4 g/dL (32-36) 08/05/19 16:55 RDW Std Deviation 37.4 fL (36.4-46.3) 08/05/19 16:55 RDW Coeff of Juli[place] 12.1 % (11.5-14.5) 08/05/19 16:55 Plt Count 215 K/uL (130-400) 08/05/19 16:55 MPV 9.1 fL (7.4-10.4) 08/05/19 16:55 Immature Gran % (Auto) 0.2 % 08/05/19 16:55 Neut % (Auto) 56.1 % 08/05/19 16:55 Lymph % (Auto) 31.7 % 08/05/19 16:55 [place] % (Auto) 9.2 % 08/05/19 16:55 Eos % (Auto) 2.2 % 08/05/19 16:55 Baso % (Auto) 0.6 % 08/05/19 16:55 Immature Gran # (Auto) 0.01 K/uL (0.00-0.02) 08/05/19 16:55 Neut # (Auto) 2.87 K/uL (1.4-6.5) 08/05/19 16:55 Lymph # (Auto) 1.62 K/uL (1.2-3.4) 08/05/19 16:55 [place] # (Auto) 0.47 K/uL (0.11-0.59) 08/05/19 16:55 Eos # (Auto) 0.11 K/uL (0-0.5) 08/05/19 16:55 Baso # (Auto) 0.03 K/uL (0-0.2) 08/05/19 16:55 PT 9.8 Seconds (9.0-12.0) 08/05/19 16:55 INR 0.9 (0.9-1.1) 08/05/19 16:55 APTT 28.2 Seconds (21.0-31.0) 08/05/19 16:55 PTT Ratio 1.0 08/05/19 16:55 Sodium 136 mmol/L (136-145) 08/05/19 16:55 Potassium 3.3 mmol/L (3.5-5.1) L 08/05/19 16:55 Chloride 101 mmol/L (98-107) 08/05/19 16:55 Carbon Dioxide 29 mmol/L (21-32) 08/05/19 16:55 Anion Gap 6.0 (3-11) 08/05/19 16:55 BUN 8 mg/dl (7-18) 08/05/19 16:55 Creatinine 0.95 mg/dl (0.6-1.2) 08/05/19 16:55 Est Cr Clr Drug Dosing 68.7 ml/min 08/05/19 16:55 Est GFR ( Amer) 78.7 08/05/19 16:55 Est GFR (Non-Af Amer) 67.9 08/05/19 16:55 BUN/Creatinine Ratio 8.3 (10-20) L 08/05/19 16:55 Glucose 269 mg/dl (70-99) H 08/05/19 16:55 POC Glucose 86 mg/dl (70-99) 08/05/19 20:56 Calcium 8.6 mg/dl (8.5-10.1) 08/05/19 16:55 Phosphorus 2.2 mg/dl (2.5-4.9) L 08/05/19 16:55 Magnesium 1.8 mg/dl (1.8-2.4) 08/05/19 16:55 Total Bilirubin 0.5 mg/dl (0.2-1) 08/05/19 16:55 AST 12 U/L (15-37) L 08/05/19 16:55 ALT 19 U/L (12-78) 08/05/19 16:55 Alkaline Phosphatase 99 U/L (45-117) 08/05/19 16:55 Troponin I < 0.015 ng/ml (0-0.045) 08/05/19 16:55 NT-Pro-B Natriuret Pep 127 pg/ml (0-900) 08/05/19 16:55 Total Protein 7.6 gm/dl (6.4-8.2) 08/05/19 16:55 Albumin 3.2 gm/dl (3.4-5.0) L 08/05/19 16:55 Globulin 4.4 gm/dl (2.5-4.0) H 08/05/19 16:55 Albumin/Globulin Ratio 0.7 (0.9-2) L 08/05/19 16:55 TSH 2.740 uIu/ml (0.300-4.500) 08/05/19 16:55 Urine Color Yellow 08/05/19 17:50 Urine Appearance Clear (Clear) 08/05/19 17:50 Urine pH 5.0 (4.5-7.5) 08/05/19 17:50 Ur Specific [place] 1.017 (1.000-1.030) 08/05/19 17:50 Urine Protein Negative (Negative) 08/05/19 17:50 Urine Glucose (UA) 3+ (Negative) H 08/05/19 17:50 Urine Ketones Negative (Negative) 08/05/19 17:50 Urine Blood Trace (Negative) H 08/05/19 17:50 Urine Nitrite Negative (Negative) 08/05/19 17:50 Urine Bilirubin Negative (Negative) 08/05/19 17:50 Urine Urobilinogen Negative (Negative) 08/05/19 17:50 Ur Leukocyte Esterase Negative (Negative) 08/05/19 17:50 Urine WBC (Auto) 0 /hpf (0-5) 08/05/19 17:50 Urine RBC (Auto) 0-4 /hpf (0-4) 08/05/19 17:50 U Hyaline Cast (Auto) 0 /lpf (0-5) 08/05/19 17:50 U Epithel Cells (Auto) 5-10 /lpf (0-5) H 08/05/19 17:50 Urine Bacteria (Auto) Negative (Negative) 08/05/19 17:[address] head: No acute intracranial abnormality. CTA head and neck: 1. No significant stenosis, occlusion, or aneurysm within the [place]. 2. No significant stenosis, occlusion, or dissection identified within the carotid or vertebral arteries. Chest x-ray : No acute process EKG as per my interpretation : Rate 80, normal axis, no ischemia, LAE
[2019-08-05] MEDS ORDERED: PHARMACY GLYCEMIC MGMT CONSULT STA (21:47)
[2019-08-05] MEDS ORDERED: ACETAMINOPHEN 325 MG TAB PO PRN (23:07)
[2019-08-05] MEDS ORDERED: FLUTICASONE PROPIONATE NA SPR 16 GM BTL PRN (23:07)
[2019-08-05] MEDS ORDERED: LORazepam 0.25 MG/0.5 ML VIAL IV PRN (23:07)
[2019-08-05] MEDS ORDERED: PROMETHAZINE HCL 12.5 MG in SODIUM CHLORIDE 0.9% 50 ML IV PRN (23:07)
[2019-08-05] MEDS ORDERED: MAGNESIUM SULFATE / D5W 1 GM/100 ML BAG IV ONE (23:07)
[2019-08-05] MEDS ORDERED: POTASSIUM CHLORIDE 40 MEQ in SODIUM CHLORIDE 0.9% 1000ML 1,000 ML IV ONE (23:07)
[2019-08-05] MEDS ORDERED: PHARMACY GLYCEMIC MGMT CONSULT PRN (23:13)
--- NOTE | 2019-08-06 00:31 | Emergency Department Note ---
Impression & Plan Left arm weakness, Stroke-like symptoms, Left arm numbness, Hypokalemia, Hypophosphatemia ED Provider Note NAME: ARIANA NICOLE AGE: 54 SEX: F ARRIVES VIA: Walk-In INFORMANT: Patient, ED PROVIDER(S): Luis Jane MD CHIEF COMPLAINT: Left arm weakness and numbness. PLAN: Disposition: Admit MEDICAL DECISION MAKING: The patient is a pleasant 54-year-old woman with a past medical history of IDDM 1 with insulin pump and and history of gastroparesis with stimulator in situ, hypertension, hyperlipidemia who presents emergency department for evaluation of left upper extremity weakness and numbness which she initially noted around 10 AM shortly after she had a brief hypoglycemic episode where she reported having sugar in the 40s but upon improvement of her blood sugar she reported lasting weakness in the left upper extremity that persisted for approximately 1.5 hours and then improved but still with residual sensation of weakness where she feels she has to "think about using it ". She also reported some associated pain with this but this has not persisted. She has been completing a painting project in and around her home but she denies any straining related to this as she is right-handed and has not overexerted herself with her left upper extremity. Otherwise she has been feeling healthy and denies any fevers, chills, cough, co ngestion, nausea, vomiting, diarrhea. On arrival patient is no acute distress, afebrile stable vital signs. On exam the patient appears clinically dry. She has no objective focal neuro deficits. She does have subjective sense of weakness in her left upper extremity. EKG without overt acute ischemia. X-ray negative for acute process. WBC, H/H and platelets within normal limits. Potassium 3.3 and phosphorus 2.2 with repletion provided. LFTs unremarkable. Troponin negative/undetectable. UA without convincing evidence of infection. CTA of the head and neck negative for ischemia, ICH, severe narrowing or occlusion of large vessels. While the patient is unable to get an MRI due to her GI stimulator reasonable admit the patient for further monitoring of her symptoms for possible stroke. The patient was agreeable with this plan. Case was discussed with Dr. Linn, [facility] hospitalist, who will evaluate the patient for admission. Triage Nursing notes reviewed and agree them. Prior medical records reviewed Vital Signs: reviewed and remarkable for no significant abnormalities Differential diagnosis: Infection, dehydration, metabolic abnormality, hypo/hyperglycemia, electrolyte disturbance, anemia, hypoxia, cardiac sources, intracerebral event, toxicologic, neurologic, as well as other pathologies. ER treatment provided: See below. Diagnostics interpreted by me: ECG: Normal sinus rhythm, 79 bpm, normal axis, no overt ST elevation or depression, QTC 444, QRS 76. There is artifact related to the patient's GI stimulator. Cardiac Monitoring: An order for continuous cardiac monitoring was placed and demonstrated normal sinus rhythm, 79 bpm, no ectopy. Laboratory studies: See below Imaging studies: XR chest 1V portable HISTORY: weakness COMPARISON: Chest 10/02/2017. FINDINGS: The lungs are clear. Cardiac silhouette is normal in size. No pleural effusions. No pneumothorax. IMPRESSION: No acute process. -- HEAD CT NONCONTRAST CT DOSE: 1066.77 mGy.cm HISTORY: Stroke symptoms. Stroke evaluation TECHNIQUE: Multiaxial CT images of the head were performed without the use of intravenous contrast. Automated exposure control was utilized for this study. A dose lowering technique was utilized adhering to the principles of ALARA. Comparison: None. Findings: The paranasal sinuses and mastoid air cells are clear. The calvarium and skull base are intact. The ventricles and sulci are within normal limits. There is no mass, hematoma, midline shift, or acute infarct. Impression: No acute intracranial abnormality. -- HEAD & NECK CTA HISTORY: Throat symptoms. Stroke evaluation TECHNIQUE: Multiaxial CT images of the head were performed following the intravenous administration of contrast to evaluate the major cerebral vessels. Multiaxial CT images of the neck were also performed following the intravenous administration of contrast to evaluate the major cervical vessels. Maximum intensity projection images were also obtained. A dose lowering technique was utilized adhering to the principles of ALARA. COMPARISON: None. FINDINGS: There is no mass, hematoma, midline shift, or acute infarct. Visualized intracranial internal carotid arteries, distal vertebral arteries, and basilar artery are widely patent. There is no significant stenosis, occlusion, or aneurysm seen within the bilateral ACAs, MCAs, or radio news writer. Mild calcified plaque within the bilateral carotid siphons. The major dural venous sinuses appear patent. The aortic arch and proximal great vessels are widely patent. There is no significant stenosis, occlusion, or dissection identified within the bilateral common carotid, internal carotid, or vertebral arteries. The right vertebral artery is hypoplastic in comparison to the left. Mild calcified plaque within the bilateral carotid bifurcations. IMPRESSION: 1. No significant stenosis, occlusion, or aneurysm within the [place]. 2. No significant stenosis, occlusion, or dissection identified within the carotid or vertebral arteries. ACT 112: Negative or not required by law. Consultation(s): Case was discussed with Dr. Linn, [facility] hospitalist, who will evaluate the patient for admission. HPI: The patient is a pleasant 54-year-old woman with a past medical history of IDDM 1 with insulin pump and and history of gastroparesis with stimulator in situ, hypertension, hyperlipidemia who presents emergency department for evalua tion of left upper extremity weakness and numbness which she initially noted around 10 AM shortly after she had a brief hypoglycemic episode where she reported having sugar in the 40s but upon improvement of her blood sugar she reported lasting weakness in the left upper extremity that persisted for approximately 1.5 hours and then improved but still with residual sensation of weakness where she feels she has to "think about using it ". She also reported some associated pain with this but this has not persisted. She has been completing a painting project in and around her home but she denies any straining related to this as she is right-handed and has not overexerted herself with her left upper extremity. Otherwise she has been feeling healthy and denies any fevers, chills, cough, congestion, nausea, vomiting, diarrhea. ROS: See above HPI for pertinent positives & negatives. A total of 10 systems reviewed and were otherwise negative. PAST MEDICAL HISTORY:See Below PAST SURGICAL HISTORY:See Below FAMILY HISTORY:See Below SOCIAL HISTORY:See Below HOME MEDICATIONS:See Below ALLERGIES:See Below VITALS:See Below PHYSICAL EXAMINATION: GENERAL: Awake, alert, well-appearing, in no distress HENT: Normocephalic, atraumatic. Oropharynx with dry mucous membranes and otherwise unremarkable. EYES: Normal conjunctiva. Sclera non-icteric. NECK: Supple. No nuchal rigidity. FROM. No JVD. RESPIRATORY: Clear to auscultation. CARDIAC: Regular rate, normal rhythm. Extremities warm and well perfused. Pulses equal. ABDOMEN: Soft, non-distended. No tenderness to palpation. No rebound or guarding. No masses. RECTAL: Deferred. MUSCULOSKELETAL: Chest examination reveals no tenderness. The back is symmetrical on inspection without obvious abnormality. There is no CVA tenderness to palpation. No joint edema. LOWER EXTREMITIES: Calves are equal size bilaterally and non-tender. No edema. No discoloration. NEURO: Normal sensorium. No sensory or motor deficits noted. Speech is fluent. 5/5 strength and SILT x 4 extremities. Cerebellar function intact including [id number], alternating palms, [id number]. SKIN: No rash or jaundice noted. Luis Jane MD Past Med/Surg History Medical History Anxiety (Chronic) CAD (coronary artery disease) (Chronic) nonocclusive Diabetes type I (Chronic) Gastroparesis due to DM (Chronic) s/p gastric neurostimulator Hemorrhoids History of ischemic colitis (Resolved) HLD (hyperlipidemia) (Chronic) HTN (hypertension) (Chronic) Presence of gastric pacemaker RLS (restless legs syndrome) (Chronic) SMA stenosis (Chronic) s/p stent Ulcerative colitis Surgical History History of appendectomy (Resolved) History of cholecystectomy (Resolved) History of hysterectomy (Resolved) Status post bilateral oophorectomy Family History Other Coronary heart disease Diabetes Family history non-contributory Lupus Social History Preferred Language: Dominican Communication Ability: Effective Senior Network Administrator Required: No Beliefs That Will Affect Care: None Current Living Situation: Spouse and Family Other Information That Helps Us Care for You: No Feels Safe at Home: Yes Safety Concerns: Feels Safe At This Time Smoking Status: Never smoker Hx Alcohol Use: Yes Hx Substance Use: No Allergies Allergies Allergy/AdvReac Type Severity Reaction Status Date / Time aspirin Allergy Severe SWELLING Verified 08/05/19 17:54 doxycycline Allergy Severe Hives Verified 08/05/19 17:54 ibuprofen Allergy Severe SWELLING Verified 08/05/19 17:54 Penicillins Allergy Severe SWELLING Verified 08/05/19 17:54 iodine Allergy Mild ITCHY Verified 08/05/19 17:54 adhesive Allergy Unknown TAPE Verified 08/05/19 17:54 Bactrim Allergy Unknown unknown Verified 10/02/17 14:18 sulfamethoxazole Allergy Unknown Unknown Verified 08/05/19 17:54 trimethoprim Allergy Unknown Unknown Verified 08/05/19 17:54 Iodinated Contrast Media Allergy . Verified 08/05/19 17:54 tolmetin [From Tolectin] Allergy Unknown Verified 08/05/19 17:54 Home Meds Home Medications Medication Instructions Recorded Confirmed acetaminophen-codeine 1 tab PO Q8H PRN 11/15/17 08/05/19 [Tylenol-Codeine #3] albuterol sulfate [Ventolin HFA] 2 puff INHALATION Q4H PRN 11/15/17 08/05/19 clonazepam [Klonopin] 0.5 mg PO BID 11/15/17 08/05/19 clopidogrel [Plavix] 75 mg PO DAILY 11/15/17 08/05/19 diphenhydramine HCl [Benadryl] 25 mg PO Q8H PRN 11/15/17 08/05/19 enalapril maleate 20 mg PO DAILY 11/15/17 08/05/19 fluticasone propionate [Flonase 2 spray INTRANASAL DAILY PRN 11/15/17 08/05/19 Allergy Relief] loratadine [Claritin] 10 mg PO DAILY PRN 11/15/17 08/05/19 metoclopramide HCl [Reglan] 10 mg PO BIDM 11/15/17 08/05/19 ondansetron HCl 4 mg PO TID PRN 11/15/17 08/05/19 promethazine 25 mg PO Q6H PRN 11/15/17 08/05/19 ropinirole 2 mg PO HS 11/15/17 08/05/19 rosuvastatin [Crestor] 20 mg PO DAILY 11/15/17 08/05/19 sodium chloride [[place] Nasal] 2 spray INTRANASAL DIRECTED PRN 11/15/17 08/05/19 insulin lispro [Humalog U-100 See Rx Instructions .ROUTE .COMPLEX 11/16/17 08/05/19 Insulin] furosemide 20 mg tablet 20 mg PO QAM 05/08/19 08/05/19 linaclotide 72 mcg capsule 72 mcg PO DAILY 05/08/19 08/05/19 dulaglutide [Trulicity] 0.75 mg SUBCUT WK 08/05/19 08/05/19 gabapentin 100 mg PO BID 08/05/19 08/05/19 prucalopride [Motegrity] 2 mg PO DAILY 08/05/19 08/05/19 Previous Rx's Medication Instructions Recorded dicyclomine 10 mg PO TID PRN #90 cap 11/19/17 conjugated estrogens 0.9 mg tablet 0.9 mg PO DAILY #90 tab 02/27/19 Results & Data (ED) Vital Signs Vital Signs - 24 hr 08/05/19 16:17 08/05/19 18:26 08/05/19 19:04 Temperature 36.5 C Temperature Source Oral Pulse Rate 84 78 Pulse Rate [Right Finger] 79 Respiratory Rate 18 18 16 Respiratory Effort / Characteristics Non-Labored Non-Labored Respiratory Depth Normal Normal Blood Pressure 177/77 H 177/74 H Blood Pressure [Right Arm] 157/85 H Blood Pressure Mean 110 129 Blood Pressure Mean [Right Arm] 109 Pulse Oximetry 97 97 Oxygen Delivery Method Room Air Room Air Sepsis Recent Fever Within 48 Hours No Sepsis New/Unexplained Change in Mental Status No Sepsis Action Taken by Nursing No Action Required 08/05/19 19:05 08/05/19 19:30 08/05/19 19:51 Temperature Temperature Source Pulse Rate 78 75 75 Pulse Rate [Right Finger] Respiratory Rate 16 21 18 Respiratory Effort / Characteristics Respiratory Depth Blood Pressure 161/79 H Blood Pressure [Right Arm] Blood Pressure Mean 107 Blood Pressure Mean [Right Arm] Pulse Oximetry Oxygen Delivery Method Sepsis Recent Fever Within 48 Hours Sepsis New/Unexplained Change in Mental Status Sepsis Action Taken by Nursing 08/05/19 20:00 08/05/19 20:30 Temperature Temperature Source Pulse Rate 72 75 Pulse Rate [Right Finger] Respiratory Rate 14 18 Respiratory Effort / Characteristics Respiratory Depth Blood Pressure Blood Pressure [Right Arm] Blood Pressure Mean Blood Pressure Mean [Right Arm] Pulse Oximetry Oxygen Delivery Method Sepsis Recent Fever Within 48 Hours Sepsis New/Unexplained Change in Mental Status Sepsis Action Taken by Nursing Laboratory Data Attestation: I reviewed the patient's lab results. Result diagrams: 08/05/19 16:55 08/05/19 16:55 Lab Results 08/05/19 08/05/19 08/05/19 Range/Units 16:55 16:55 16:55 WBC 5.11 (4.8-10.8) K/uL RBC 4.56 (4.2-5.4) M/uL Hgb 12.9 (12.0-16.0) g/dL Hct 38.6 (37-47) % MCV 84.6 (80-100) fL MCH 28.3 (25-34) pg MCHC 33.4 (32-36) g/dL RDW Std Deviation 37.4 (36.4-46.3) fL RDW Coeff of Juliocesar 12.1 (11.5-14.5) % Plt Count 215 (130-400) K/uL MPV 9.1 (7.4-10.4) fL Immature Gran % (Auto) 0.2 % Neut % (Auto) 56.1 % Lymph % (Auto) 31.7 % [place] % (Auto) 9.2 % Eos % (Auto) 2.2 % Baso % (Auto) 0.6 % Immature Gran # (Auto) 0.01 (0.00-0.02) K/uL Neut # (Auto) 2.87 (1.4-6.5) K/uL Lymph # (Auto) 1.62 (1.2-3.4) K/uL [place] # (Auto) 0.47 (0.11-0.59) K/uL Eos # (Auto) 0.11 (0-0.5) K/uL Baso # (Auto) 0.03 (0-0.2) K/uL PT 9.8 (9.0-12.0) Seconds INR 0.9 (0.9-1.1) APTT 28.2 (21.0-31.0) Seconds PTT Ratio 1.0 Sodium 136 (136-145) mmol/L Potassium 3.3 L (3.5-5.1) mmol/L Chloride 101 (98-107) mmol/L Carbon Dioxide 29 (21-32) mmol/L Anion Gap 6.0 (3-11) BUN 8 (7-18) mg/dl Creatinine 0.95 (0.6-1.2) mg/dl Est Cr Clr Drug Dosing 68.7 ml/min Est GFR ( Amer) 78.7 Est GFR (Non-Af Amer) 67.9 BUN/Creatinine Ratio 8.3 L (10-20) Glucose 269 H (70-99) mg/dl POC Glucose (70-99) mg/dl Calcium 8.6 (8.5-10.1) mg/dl Phosphorus 2.2 L (2.5-4.9) mg/dl Magnesium 1.8 (1.8-2.4) mg/dl Total Bilirubin 0.5 (0.2-1) mg/dl AST 12 L (15-37) U/L ALT 19 (12-78) U/L Alkaline Phosphatase 99 (45-117) U/L Troponin I < 0.015 (0-0.045) ng/ml NT-Pro-B Natriuret Pep 127 (0-900) pg/ml Total Protein 7.6 (6.4-8.2) gm/dl Albumin 3.2 L (3.4-5.0) gm/dl Globulin 4.4 H (2.5-4.0) gm/dl Albumin/Globulin Ratio 0.7 L (0.9-2) TSH 2.740 (0.300-4.500) uIu/ml Urine Color Urine Appearance (Clear) Urine pH (4.5-7.5) Ur Specific Breaks (1.000-1.030) Urine Protein (Negative) Urine Glucose (UA) (Negative) Urine Ketones (Negative) Urine Blood (Negative) Urine Nitrite (Negative) Urine Bilirubin (Negative) Urine Urobilinogen (Negative) Ur Leukocyte Esterase (Negative) Urine WBC (Auto) (0-5) /hpf Urine RBC (Auto) (0-4) /hpf U Hyaline Cast (Auto) (0-5) /lpf U Epithel Cells (Auto) (0-5) /lpf Urine Bacteria (Auto) (Negative) 08/05/19 08/05/19 Range/Units 17:50 20:56 WBC (4.8-10.8) K/uL RBC (4.2-5.4) M/uL Hgb (12.0-16.0) g/dL Hct (37-47) % MCV (80-100) fL MCH (25-34) pg MCHC (32-36) g/dL RDW Std Deviation (36.4-46.3) fL RDW Coeff of Juliocesar (11.5-14.5) % Plt Count (130-400) K/uL MPV (7.4-10.4) fL Immature Gran % (Auto) % Neut % (Auto) % Lymph % (Auto) % [place] % (Auto) % Eos % (Auto) % Baso % (Auto) % Immature Gran # (Auto) (0.00-0.02) K/uL Neut # (Auto) (1.4-6.5) K/uL Lymph # (Auto) (1.2-3.4) K/uL [place] # (Auto) (0.11-0.59) K/uL Eos # (Auto) (0-0.5) K/uL Baso # (Auto) (0-0.2) K/uL PT (9.0-12.0) Seconds INR (0.9-1.1) APTT (21.0-31.0) Seconds PTT Ratio Sodium (136-145) mmol/L Potassium (3.5-5.1) mmol/L Chloride (98-107) mmol/L Carbon Dioxide (21-32) mmol/L Anion Gap (3-11) BUN (7-18) mg/dl Creatinine (0.6-1.2) mg/dl Est Cr Clr Drug Dosing ml/min Est GFR ( Amer) Est GFR (Non-Af Amer) BUN/Creatinine Ratio (10-20) Glucose (70-99) mg/dl POC Glucose 86 (70-99) mg/dl Calcium (8.5-10.1) mg/dl Phosphorus (2.5-4.9) mg/dl Magnesium (1.8-2.4) mg/dl Total Bilirubin (0.2-1) mg/dl AST (15-37) U/L ALT (12-78) U/L Alkaline Phosphatase (45-117) U/L Troponin I (0-0.045) ng/ml NT-Pro-B Natriuret Pep (0-900) pg/ml Total Protein (6.4-8.2) gm/dl Albumin (3.4-5.0) gm/dl Globulin (2.5-4.0) gm/dl Albumin/Globulin Ratio (0.9-2) TSH (0.300-4.500) uIu/ml Urine Color Yellow Urine Appearance Clear (Clear) Urine pH 5.0 (4.5-7.5) Ur Specific Breaks 1.017 (1.000-1.030) Urine Protein Negative (Negative) Urine Glucose (UA) 3+ H (Negative) Urine Ketones Negative (Negative) Urine Blood Trace H (Negative) Urine Nitrite Negative (Negative) Urine Bilirubin Negative (Negative) Urine Urobilinogen Negative (Negative) Ur Leukocyte Esterase Negative (Negative) Urine WBC (Auto) 0 (0-5) /hpf Urine RBC (Auto) 0-4 (0-4) /hpf U Hyaline Cast (Auto) 0 (0-5) /lpf U Epithel Cells (Auto) 5-10 H (0-5) /lpf Urine Bacteria (Auto) Negative (Negative) Administered Medications Discontinued Medications Dexamethasone Sodium Phosphate (Decadron Pf) 10 mg IV NOW ONE Stop: 08/05/19 17:35 Last Admin: 08/05/19 17:44 Dose: 10 mg Documented by: [id number] Diphenhydramine HCl (Benadryl) 25 mg IV NOW STA Stop: 08/05/19 17:35 Last Admin: 08/05/19 17:44 Dose: 25 mg Documented by: [id number] Sodium Chloride (Nss) 500 mls @ 999 mls/hr IV .Q31M ONE Stop: 08/05/19 17:33 Last Infusion: 08/05/19 17:59 Dose: 0 mls/hr Documented by: [id number] Admin: 08/05/19 17:21 Dose: 999 mls/hr Documented by: [id number] Potassium Chloride (K Chirag / Wtr) 10 meq in 100 mls @ 100 mls/hr IV Q1H RAJ Stop: 08/05/19 20:44 Last Infusion: 08/05/19 20:08 Dose: 0 mls/hr Documented by: [id number] Admin: 08/05/19 19:04 Dose: 100 mls/hr Documented by: [id number] Ioversol (Optiray 320 125ml) 115 ml IV ONCE PRN PRN Reason: Interaction Checking Stop: 08/09/19 18:05 Last Admin: 08/05/19 18:07 Dose: 115 ml Documented by: [id number] Potassium Chloride (Klor-Con M20) 20 meq PO NOW STA Stop: 08/05/19 18:39 Last Admin: 08/05/19 19:04 Dose: 20 meq Documented by: [id number] Potassium Phosphate (Phospha 250 Neutral 155-852-130 Mg) 2 tab PO NOW STA Stop: 08/05/19 18:39 Last Admin: 08/05/19 19:04 Dose: 2 tab Documented by: [id number] Blood Pressure Blood Pressure Findings: Elevated blood pressure Blood Pressure Disposition: further management by hospitalist Discharge Plan Visit Data *Final* Discharge Date/Time: 08/05/19 22:36 Chief Complaint: TIA Symptoms Stated Complaint: POSSIBLE MINI STROKES ED Provider: Luis Jane Discharge Problem: Left arm weakness, Stroke-like symptoms, Left arm numbness, Hypokalemia, Hypophosphatemia Patient Disposition: Admitted As Inpatient Discharge Instructions Interventions: ED Discharge Assessment Last Done: 08/05/19 22:36
[2019-08-06] MEDS: POTASSIUM CHLORIDE / WTR 10 MEQ/100 ML PLCT IV SCH (01:08)
[2019-08-06] MEDS: clonazePAM 0.5 MG TAB PO SCH ×3 (01:09→20:41)
[2019-08-06] MEDS ORDERED: GLUCOSE 10 TABS/TUBE PO PRN (02:00)
[2019-08-06] MEDS ORDERED: GLUCOSE 40% GEL 15 GM TUBE PO PRN (02:00)
[2019-08-06] MEDS ORDERED: GLUCAGON FOR INJ 1 MG VIAL SQ PRN (02:00)
[2019-08-06] MEDS ORDERED: CARBOHYDRATES FOR HYPOGLYCEMIA PO PRN (02:00)
[2019-08-06] MEDS ORDERED: INSULIN HUMAN LISPRO (humaLOG) 100 UNITS/ML VIAL SC PRN (02:00)
[2019-08-06] MEDS ORDERED: DEXTROSE 50% 50 ML SYRINGE IV PRN (02:00)
[2019-08-06] MEDS: ACETAMINOPHEN W/CODEINE #3 1 TAB PO PRN ×2 (04:42→14:22)
[2019-08-06 05:53] LABS: Hematocrit (blood only) 38.2 % (37-47); Hemoglobin 12.9 g/dL (12.0-16.0); Mean Corpuscular Hemoglobin 28.2 pg (25-34); Mean Corpuscular Hgb Conc 33.8 g/dL (32-36); Mean Corpuscular Volume 83.4 fL (80-100); Platelet Count 210 K/uL (130-400); RDW Standard Deviation 36.6 fL (36.4-46.3); Red Blood Count 4.58 M/uL (4.2-5.4); White Blood Count 7.27 K/uL (4.8-10.8)
[2019-08-06 05:54] LABS: Basophils # (auto) 0.01 K/uL (0-0.2); Basophils % (auto) 0.1 %; Immature Granulocytes # (auto) 0.01 K/uL (0.00-0.02); Immature Granulocytes % (auto) 0.1 %; Lymphocytes % (auto) 8.3 %; Mean Platelet Volume 9.3 fL (7.4-10.4); Monocytes # (auto) 0.31 K/uL (0.11-0.59); Monocytes % (auto) 4.3 %; Neutrophils # (auto) 6.34 K/uL (1.4-6.5); Neutrophils % (auto) 87.2 %
[2019-08-06 06:21] LABS: BUN Creatinine Ratio 15.9 (10-20); Calcium 8.3 mg/dl (8.5-10.1); Creatinine Clr Calc Pharmacy 89.4 ml/min; Est GFR (African American) 108.2; Est GFR (Non-African American) 93.4; Potassium 4.1 mmol/L (3.5-5.1)
[2019-08-06] MEDS: LINACLOTIDE 72 MCG CAPSULE PO SCH (08:25)
[2019-08-06] MEDS: ENOXAPARIN INJ 40 MG/0.4 ML SYR SQ SCH (08:25)
[2019-08-06] MEDS: ROSUVASTATIN CALCIUM 20 MG TAB PO SCH (08:25)
[2019-08-06] MEDS: ENALAPRIL MALEATE 10 MG TAB PO SCH (08:25)
[2019-08-06] MEDS: CLOPIDOGREL BISULFATE 75 MG TAB PO SCH (08:25)
[2019-08-06] MEDS: [UNRECOGNIZED DRUG - OTHER] SCH ×2 (08:26→15:35)
--- NOTE | 2019-08-06 09:43 | CT Scan Report ---
CT head/brain wo con CLINICAL HISTORY: 54 years-old Female with ffup study, stroke like symptoms. Acute strokelike sympto ms TECHNIQUE: Multiple axial CT images of the head were obtained without contrast. A dose lowering tech nique was utilized adhering to the principles of ALARA. CT DOSE: 788.63 mGycm COMPARISON: Head CT 08/05/2019 FINDINGS: No acute intracranial hemorrhage, midline shift, intracranial mass, hydrocephalus, territorial ischem ia or abnormal extra-axial collection. 10 mm hypodensity of the right lentiform nucleus is unchanged suggestive of prominent perivascular space versus remote lacunar infarct. The calvarium is intact. The paranasal sinuses, mastoid air cells, and middle ear cavities are clear . IMPRESSION: No acute intracranial abnormality. ACT 112: Negative or not required by law. The above report was generated using voice recognition software. It may contain grammatical, syntax o r spelling errors. Electronically signed by: Rodger Geronimo M.D. 08/06/2019 9:42 AM
[2019-08-06] MEDS: ESTROGENS, CONJUGATED 0.3 MG TAB PO SCH ×2 (14:24→15:58)
--- NOTE | 2019-08-06 14:35 | Pharmacy Report ---
Glycemic Control Consultation - Date of Service August 06, 2019 - Scope Scope: Glycemic Pharmacist consulted for glycemic control and to write orders per [facility] inpatient glycemic control protocol. - Objective Weight: 78.6 kg Accuchecks BSG (last 24hrs): 08/05/19 08/05/19 08/06/19 16:55 20:56 02:07 Glucose 269 H POC Glucose 86 324 H* 08/06/19 08/06/19 08/06/19 02:10 05:30 06:16 Glucose 246 H POC Glucose 327 H* 240 H 08/06/19 08/06/19 07:37 11:28 Glucose POC Glucose 215 H 198 H Laboratory Data (last 24hrs): 08/05/19 08/06/19 16:55 05:30 Potassium 3.3 L 4.1 D Carbon Dioxide 29 26 Anion Gap 6.0 6.0 Creatinine 0.95 0.73 Est Cr Clr Drug Dosing 68.7 89.4 - Recent Pertinent Medications Outpatient Anti-diabetic Regimen: * insulin pump, trulicity * A1c = 6.7 % 06/2019 per provider notes Risk Factors for Insulin Resistance: * Steroids: 08/04 steroids * Diet: yes - Assessment & Plan Assessment & Plan: ASSESSMENT: * Type 1 diabetes, managed on insulin pump. Prior admissions patient well managed while on her insulin pump. Provider okay with continuation of pump and Q4 hr checks added on admission. Spoke with nurse and patient very knowledgeable with pump and would like to continue with it. Told her to notify us if any questions or concerns * BSGs slightly elevated on admission d/t steroids, however trending down. PLAN FOR INPATIENT GLYCEMIC CONTROL: * Plan for continuation of home insulin pump - BSGs were elevated overnight likely due to steroids, now trending down. Of note patient changing insulin pump tubing/site around ~0200 therefore BSGs slightly elevated at that time as well * Continue to monitor while on pump - anticipate BSGs to further improve * Please note that the plan above was derived based on current level of insulin resistance and hospital stress. These recommendations are appropriate for inpatient admission only. Plan of care upon discharge will need to be reassessed to avoid potential outpatient hypo/hyperglycemia. Thank you.
--- NOTE | 2019-08-06 16:21 | Hospitalist Progress Note ---
Date of Service August 06, 2019 Assessment & Plan (1) Stroke-like symptoms: presented with transient left upper extremity weakness /numbness resolution of paresthesia has persistent left 4/5 weakness pt is continued with Plavix /statin develops rash and swelling with Aspirin hx nonocclusive CAD, SMA stenosis status post stent placement MRI unfortunately precluded by gastric pacemaker CTA of head and neck : shows no intracranial vascular occlusion /aneurysm neurology consult requested Hyperlipidemia: on statin goal LDL < 70 Pluritic chest pain reports of pluritic chest pain started this afternoon no cough , SOB ordered for Dimer report of rt lower ext swelling last few weeks , improved now will order lower ext doppler and CTA of chest if . dimer elevated incentive spriometery DM1 on an insulin pump, well-controlled as of recent outpatient hemoglobin A1c of 6.03 Jul 2019 chronic abdominal pain due to DM gastroparesis sp gastric pacemaker placement DVT prophylaxis Lovenox subcu Full code Disposition ; expected to be discharged home when medically stable Admission and Anticipated Discharge Date Admission Date: August 05, 2019 Subjective no complain of chest pain minimum left sided weakness no headache , no vision change speech fluent , no problem in swallowing no fever or chills Review of Systems Review of Systems: All systems reviewed & are unremarkable except as noted in HPI & below Cardiovascular: no chest pain, no orthopnea, no palpitations and no syncope Neurologic: + localized weakness (left upper and lower ext ); no gait abnormality, no unsteadiness, no paresthesia, no dizziness, no headache(s), no abnormal speech and no confusion Physical Exam Constitutional: WD/WN, vitals as above no acute distress Eyes: PERRL, conjunctivae normal, anicteric sclerae ENMT: external ear and nose normal, oropharynx normal Neck: trachea midline, no thyromegaly Respiratory: normal respiratory effort, lungs clear to auscultation Cardiovascular: RRR, no murmur, no edema Gastrointestinal (Abdomen): normal bowel sounds, soft, nontender, no hepatosplenomegaly Musculoskeletal: left upper and lower ext 4/5 weakness Neurologic: PERRL, EOMI, accommodation nl, no face palsy, no dysarthria + focal motor deficit (left upper and lower ext 4/5 weakness ) Speech / Cognition: normal speech Psychiatric: A+Ox3, euthymic affect Results & Data Results & Data ([facility]) Vital Signs (Past 12 Hours) Vital Signs Temp Pulse Pulse Resp BP BP Pulse Ox 06/10/20 15:20 36.5 C 72 20 145/71 H 96 08/06/19 11:24 36.6 C 77 18 160/74 H 99 08/06/19 07:57 79 08/06/19 07:46 36.5 C 76 18 150/72 H 97
[2019-08-06 17:56] LABS: D Dimer 320 ug/L FEU (0-500)
--- NOTE | 2019-08-06 20:18 | Consultation Report ---
DATE OF CONSULTATION: 08/06/2019 REASON FOR CONSULTATION: Possible stroke. HISTORY OF PRESENT ILLNESS: The patient is a 54-year-old right-handed juvenile diabetic with nonocclusive coronary artery disease, SMA stenosis, status post stent, hypertension, hyperlipidemia, gastroparesis, status post gastric pacemaker placement, who has been in her usual state of health. Yesterday morning, she noted she felt mildly unwell and checked her blood sugar, which was 40. She drank some juice and felt improved. Sometime thereafter she noted that she had difficulty clipping her nails using her left hand. She also noted the left arm was mildly weak and would not do what she needed it to do. She rechecked her blood sugar, which was unremarkable. The symptoms have persisted. She has no prior history of transient ischemic attack or stroke. No history of rheumatic fever or murmur. She is chronically on Plavix for her SMA stent. SHE IS ALLERGIC TO ASPIRIN. CT of the head noncontrast on the day of admission and this morning showed a right ventricular form hypodensity, either a dilated perivascular space or an old infarction. CTA of the head and neck showed no significant stenosis. LDL was 78. Point of care blood sugar was 86, on repeat it was 324. Sodium, potassium, BUN and creatinine were all unremarkable. Triglycerides were 55, HDL 90. White count, H and H and platelet count were normal. Urinalysis notable for 3+ glucose and trace blood. The patient has been in her usual state of health. Her weight has been stable. She has not had any head or neck injury. No chiropractic manipulation of the neck. No prior chest pain, palpitation, shortness of breath, cough, anosmia, or ageusia. There has been no neck or arm pain associated with her left arm clumsiness. She had recently noted some bilateral lower extremity edema. PAST MEDICAL HISTORY: As above. Additionally, colitis, diabetic gastroparesis, restless legs, diabetic retinopathy. PAST SURGICAL HISTORY: Vascular procedures, balloon angioplasty of the coronary arteries, hysterectomy, appendectomy, eye surgery, gastric stimulator device and replacement. FAMILY HISTORY: No family history of diabetes or heart disease. SOCIAL HISTORY: Nonsmoker, occasionally drinks alcohol. 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 ALLERGIES: ASPIRIN, WHICH INCLUDES SWELLING; DOXYCYCLINE; IBUPROFEN; PENICILLIN; IODINE; ADHESIVE; BACTRIM; SULFAMETHOXAZOLE/TRIMETHOPRIM AND TOLMETIN. HOME MEDICATIONS: Tylenol No. 3, albuterol, clonazepam, Plavix, diphenhydramine, enalapril, Flonase, loratadine, Reglan, Zofran, promethazine, ropinirole, rosuvastatin, dicyclomine, conjugated estrogen, furosemide, linaclotide, Trulicity, gabapentin, Motegrity. PHYSICAL EXAMINATION: VITAL SIGNS: Most recent vitals are temperature 36.5, pulse rate 72, respirations 20, blood pressure 160/74, O2 sat 96% on room air. GENERAL: The patient is awake and alert, normal speech and language. Affect appropriate. She is oriented, no right/left confusion. Normal naming, repetition and 3-step commands. NECK: No carotid bruits are noted. HEART: No heart murmurs appreciable. ABDOMEN: Soft and nontender. NEUROLOGIC: Pupils are equal, round, and reactive to light. The optic nerves are difficult to visualize. There are normal arndt, motility, facial sensation and facial symmetry. Speech and language are normal. Motor: Left upper extremity -- diffusely about 4/5. There is a mild left drift with decreased left rapid alternating movement. There may be marginal weakness of the left lower extremity 4-4+/5. Reflexes are symmetric. Left toes upgoing, right toes downgoing. Normal sensation to light touch and temperature. Ttgbml-jt-azau and yhpv-dk-rtab are unremarkable. Gait is unremarkable. IMPRESSION: Probable small vessel cerebrovascular disease with new lacunar infarction. PLAN: Diagnostically, recommend an echo with a bubble study to rule out a right to left shunt. Scott boykin as an outpatient. The patient's LDL is 78, recommend a goal of 70 or less, would increase the intensity of the statin. Her estrogen supplementation should be discontinued. I will confer with her treating physicians including cardiology and vascular whether there may be some utility in switching to a different antiplatelet therapy, would ____ determining if they have any objection in the switch from Plavix to Brilinta. We will follow with you. SHANNAN
[2019-08-06] MEDS ORDERED: ROPINIROLE HCL 1 MG TABLET PO SCH (21:00)
--- NOTE | 2019-08-06 22:07 | Electrocardiogram Report ---
Test Reason : Blood Pressure : / mmHG Vent. Rate : 079 BPM Atrial Rate : 079 BPM P-R Int : 158 ms QRS Dur : 076 ms QT Int : 388 ms P-R-T Axes : 068 068 051 degrees QTc Int : 444 ms Poor data quality, interpretation may be adversely affected Normal sinus rhythm Possible Left atrial enlargement Cannot rule out Anterior infarct , age undetermined Abnormal ECG When compared with ECG of 22-AUG-2017 01:47, No significant change was found Confirmed by Alexys Aceves ([id number]) on 08/06/2019 10:07:37 PM Referred By: REFERRED SELF Confirmed By:Alexys Aceves
[2019-08-07] MEDS: ESTROGENS, CONJUGATED 0.3 MG TAB PO SCH (08:12)
[2019-08-07] MEDS: CLOPIDOGREL BISULFATE 75 MG TAB PO SCH (08:13)
[2019-08-07] MEDS: ENALAPRIL MALEATE 10 MG TAB PO SCH (08:13)
[2019-08-07] MEDS: LINACLOTIDE 72 MCG CAPSULE PO SCH (08:13)
[2019-08-07] MEDS: ROSUVASTATIN CALCIUM 20 MG TAB PO SCH (08:13)
[2019-08-07] MEDS: ENOXAPARIN INJ 40 MG/0.4 ML SYR SQ SCH (08:17)
[2019-08-07] MEDS: clonazePAM 0.5 MG TAB PO SCH (08:18)
[2019-08-07] MEDS ORDERED: MOTEGRITY PO SCH (09:00)
--- NOTE | 2019-08-07 15:02 | Discharge Summary ---
Date of Service August 07, 2019 Admission HPI Per Admitting Provider History obtained from the patient and records. Medical history significant for History obtained from the patient and records. Medical history significant for nonocclusive CAD, SMA stenosis status post stent placement, hypertension, hyperlipidemia,DM1 on an insulin pump, chronic abdominal pain 2 to DM gastroparesis sp pacemaker placement, restless leg syndrome, Last confinement October 2017 for colitis. Around 8 AM this morning, patient started not feeling well. No chest pain, no S OB. Blood sugar on self check noted to be 39. Patient sat down on the recliner and started consuming juice and cookies. No recent change in insulin pump regimen as per patient. Appetite at baseline. Patient woke up about an hour later on the recliner. BSG on recheck in the 100s. While cutting her fingernails, paatient later felt like her left hand/arm was not feeling right, as if her "left hand was not listening to her brain." On and off numbness. No chest pain, no S OB. No headache, no neck pain. No recent trauma. No prior episodes. Patient's contacted PCP who subsequently directed patient to ER for evaluation. On and off LUE symptoms at the ER. At one point, BSG was noted to be 40s at the ER. MEDICAL HISTORY: As above SURGERIES: She had vascular procedures, cholecystectomy, hysterectomy, appendectomy, eye surgery, gastric stimulator device placement. FAMILY HISTORY: There is a family history of diabetes, heart disease. 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 Principal Diagnosis ACUTE CVA HIGH CHOLESTEROL Discharge Exam Constitutional WD/WN, vitals as above no acute distress Eyes PERRL, conjunctivae normal, anicteric sclerae ENMT external ear and nose normal, oropharynx normal Neck trachea midline, no thyromegaly Respiratory normal respiratory effort, lungs clear to auscultation Cardiovascular RRR, no murmur, no edema Gastrointestinal (Abdomen) normal bowel sounds, soft, nontender, no hepatosplenomegaly Neurologic PERRL, EOMI, accommodation nl, no face palsy, no dysarthria + focal motor deficit (left upper and lower ext 4/5 weakness ) Speech / Cognition: normal speech Psychiatric A+Ox3, euthymic affect Discharge Data Allergies Allergy/AdvReac Type Severity Reaction Status Date / Time aspirin Allergy Severe SWELLING Verified 08/05/19 17:54 doxycycline Allergy Severe Hives Verified 08/05/19 17:54 ibuprofen Allergy Severe SWELLING Verified 08/05/19 17:54 Penicillins Allergy Severe SWELLING Verified 08/05/19 17:54 iodine Allergy Mild ITCHY Verified 08/05/19 17:54 adhesive Allergy Unknown TAPE Verified 08/05/19 17:54 Bactrim Allergy Unknown unknown Verified 10/02/17 14:18 sulfamethoxazole Allergy Unknown Unknown Verified 08/05/19 17:54 trimethoprim Allergy Unknown Unknown Verified 08/05/19 17:54 Iodinated Contrast Media Allergy . Verified 08/05/19 17:54 tolmetin [From Tolectin] Allergy Unknown Verified 08/05/19 17:54 Consultations 08/05/19 21:15 ED Decision to Admit Stat 08/05/19 23:07 Consult Case Management - Discharge Planning Routine Consult Neurology Routine Ordered Studies 08/05/19 17:03 CT angio head w con Stat CT angio neck with con Stat CT head/brain wo con Stat 08/06/19 09:00 CT head/brain wo con Routine Hospital Course (1) Stroke-like symptoms: ACUTE CVA : possible acute mini stroke on right side presented with transient left upper extremity weakness /numbness resolution of paresthesia has persistent left 4/5 weakness pt was on Plavix and Crestor develops rash and swelling with Aspirin hx nonocclusive CAD, SMA stenosis status post stent placement MRI unfortunately precluded by gastric pacemaker CTA of head and neck : shows no intracranial vascular occlusion /aneurysm neurology consult appreciated changed antiplateltes to Brillinta /Dc Plavix will need out patient Zio patch Neurology follow up in 3-6 months Hyperlipidemia: on Crestor 20 mg daily /LDL 78 changed to Lipitor 40 mg goal LDL < 70 repeat fasting lipid panel in 6 months Pluritic chest pain no further symptoms d Dimer negative low suspicion for thomboembolic event incentive spriometery DM1 on an insulin pump, well-controlled as of recent outpatient hemoglobin A1c of 6.03 Jul 2019 chronic abdominal pain due to DM gastroparesis sp gastric pacemaker placement DVT prophylaxis Lovenox subcu Full code Disposition ; stable to be discharged home today Total Time Total Time Spent Total Time Spent (In Minutes): 35 MINS Total Time Includes: Examination of the Patient, Discharge Planning and Medication Reconciliation Discharge Plan Discharge Items Patient Disposition: Home - Self-Care Reason For Visit: STROKE LIKE SYMPTOMS Discharge Diagnosis: ACUTE STROKE /LEFT SIDED WEAKNESS HIGH CHOLESTEROL Activity: Resume your previous activity Non-emergency contact: Primary Care Provider Call non-emergency contact if: you have any medication questions and your symptoms worsen Follow-up/Referrals: Pedro Goldberg MD [Primary Care Provider] - 08/14/19 11:20 am (08/14/2019 11:20 AM Provider Pedro Goldberg MD Department General Internal Medicine [facility] ) Fozia Perkins PA-C [Physician Utility Tech] - (NEUROLOGY FOLLOW UP IN 3-6 MONTHS ) Diet: Carb Count or DM1 and Heart Healthy Addtl Attending Provider Instructions: WILL NEED AMBULATORY MANAGER SHOP /ZIO PATCH FOR A PART OF STROKE WORK UP ( EVALUATION FOR POSSIBLE ARRYTHMIA /ATRIAL FIBRILLATION ) PLEASE HAVE DR GOLDBERG S OFFICE ARRANGE IT WITH [facility]OLOGY CL[facility] AT [facility] MEDICATIONS CHANGES : 1. BRILLINTA 90 MG 1 TABLET TWICE DAILY -TO PREVENT FUTURE STROKE 2.LIPITOR 40 MG DAILY ( YOUR BAD CHOLESTEROL LDL 78 -GOAL LDL 70 TO PREVENT FUTURE STROKE ) NEED TO CHECK REPEAT LIPID PANEL IN 6 MONTHS NEUROLOGY FOLLOW UP IN 3-6 MONTHS Risk Factors for Stroke: You can reduce your chances of stroke by working with your medical provider to adopt a healthy lifestyle. Some specific ways to lower your chance of stroke are: * If you are a smoker, now is the time to stop smoking cigarettes * If you are diabetic, improve the control of your blood sugars * Avoid excessive amounts of alcohol * Control high blood pressure * Lose weight if you are overweight * Be sure to lead an active lifestyle * Eat a healthy diet low in salt, cholesterol and fat You should know about other risk factors for stroke that you are unable to control. These include: * Age 55 years or older * Male gender * Certain racial groups: , or / * Family History of Stroke, Mini stroke or Heart Attack * Sickle Cell Disease Follow Up: It is important for you to keep your follow up appointments with your medical provider. Who to Call and When: Medical Emergencies: Call 911 immediately if you experience any of the following warning signs and symptoms of Stroke: * Sudden numbness or weakness of the face, arm or leg, especially on one side of the body * Sudden confusion, trouble speaking or understanding * Sudden trouble seeing in one or both eyes * Sudden trouble walking, dizziness, loss of balance or coordination * Sudden severe headache with no cause Do not delay calling 911 if you experience any warning signs or symptoms of a stroke. Delay in seeking medical attention may affect what treatments can be given to you. . Pending Studies at Discharge: Yes Studies:: ZIO PATCH CARDIAC MONITORING REPEAT FASTING LIPID PANEL IN 6 MONTHS Stand-Alone Forms: My [facility] DigitalMR, Smoking Cessation Medications and DC Order Prescriptions: New Brilinta 90 mg Tablet 90 mg PO BID 30 Days Qty: 60 RF: 3 atorvastatin [Lipitor] 40 mg tablet 40 mg PO DAILY Qty: 30 RF: 3 Continued Linzess 72 mcg capsule 72 mcg PO DAILY RF: 0 enalapril maleate 20 mg Tablet 20 mg PO DAILY RF: 0 ondansetron HCl 4 mg Tablet 4 mg PO TID PRN (Reason: Nausea) RF: 0 clonazepam [Klonopin] 0.5 mg Tablet 0.5 mg PO BID RF: 0 acetaminophen-codeine [Tylenol-Codeine #3] 300-30 mg Tablet 1 tab PO Q8H PRN (Reason: Pain) RF: 0 ropinirole 2 mg Tablet 2 mg PO HS RF: 0 diphenhydramine HCl [Benadryl] 25 mg Capsule 25 mg PO Q8H PRN (Reason: Itching) RF: 0 promethazine 25 mg Tablet 25 mg PO Q6H PRN (Reason: Nausea) RF: 0 albuterol sulfate [Ventolin HFA] 90 mcg/actuation HFA aerosol inhaler 2 puff Inhalation Q4H PRN (Reason: Shortness Of Breath Or Wheezing) RF: 0 fluticasone propionate [Flonase Allergy Relief] 50 mcg/actuation [place],Suspension 2 spray INTRANASAL DAILY PRN (Reason: Allergy Symptoms) RF: 0 loratadine [Claritin] 10 mg Tablet 10 mg PO DAILY PRN (Reason: Allergic Reaction) RF: 0 metoclopramide HCl [Reglan] 10 mg Tablet 10 mg PO BIDM RF: 0 sodium chloride [Long Nasal] 0.65 % Aerosol,[place] 2 spray INTRANASAL DIRECTED PRN (Reason: Nasal Congestion) RF: 0 insulin lispro [Humalog U-100 Insulin] 100 unit/mL Solution See Rx Instructions .ROUTE .COMPLEX RF: 0 dicyclomine 10 mg Capsule 10 mg PO TID PRN (Reason: Muscle Spasm) Qty: 90 RF: 0 furosemide [Lasix] 20 mg tablet 20 mg PO QAM RF: 0 Trulicity 0.75 mg/0.5 mL pen injector 0.75 mg SUBCUT WK RF: 0 Motegrity 2 mg tablet 2 mg PO DAILY RF: 0 Discontinued Premarin 0.9 mg tablet 0.9 mg PO DAILY Qty: 90 RF: 3 clopidogrel [Plavix] 75 mg Tablet 75 mg PO DAILY RF: 0 rosuvastatin [Crestor] 20 mg Tablet 20 mg PO DAILY RF: 0 gabapentin 100 mg capsule 100 mg PO BID RF: 0 Discharge Orders: Discharge Order (Routine); Ordered 08/07/19 Ordered By: Jessica Cross/Other Patient Handouts: Cholesterol Control, Cholesterol Meds, Cancer Uterus Dc Admission Data Admit Date/Time: 08/05/19 21:47 Attending Provider: Jessica Carrizales Admit Provider: Umberto Linn Primary Care Provider: Pedro Goldberg Other Providers: Umberto Linn ; Fozia Perkins ; Humble Best ; Fozia Reina ; Aftab Tellez
[2019-08-07 15:21] VITALS: PULSE 69; TEMP 98.2; O2SAT 96
[2019-08-07] MEDS ORDERED: PHARMACIST DISCHARGE MED REC CONSULT PRN (15:37)
[2019-08-07 15:44] VITALS: BP 160/74
--- NOTE | 2019-08-07 16:00 | Pharmacy Report ---
Pharmacist Stroke Counseling - Date of Service August 07, 2019 - Scope: Pharmacy has been consulted to provide medication discharge counseling for this patient admitted with [ischemic stroke] [hemorrhagic stroke] [transient ischemic attack] as per the Pharmacist Discharge Counseling for Stroke Patients Jens mon - Medications on Discharge: Home Medications Medication Instructions Recorded Confirmed acetaminophen-codeine 1 tab PO Q8H PRN 11/15/17 08/05/19 [Tylenol-Codeine #3] albuterol sulfate [Ventolin HFA] 2 puff INHALATION Q4H PRN 11/15/17 08/05/19 clonazepam [Klonopin] 0.5 mg PO BID 11/15/17 08/05/19 diphenhydramine HCl [Benadryl] 25 mg PO Q8H PRN 11/15/17 08/05/19 enalapril maleate 20 mg PO DAILY 11/15/17 08/05/19 fluticasone propionate [Flonase 2 spray INTRANASAL DAILY PRN 11/15/17 08/05/19 Allergy Relief] loratadine [Claritin] 10 mg PO DAILY PRN 11/15/17 08/05/19 metoclopramide HCl [Reglan] 10 mg PO BIDM 11/15/17 08/05/19 ondansetron HCl 4 mg PO TID PRN 11/15/17 08/05/19 promethazine 25 mg PO Q6H PRN 11/15/17 08/05/19 ropinirole 2 mg PO HS 11/15/17 08/05/19 sodium chloride [[place] Nasal] 2 spray INTRANASAL DIRECTED PRN 11/15/17 08/05/19 insulin lispro [Humalog U-100 See Rx Instructions .ROUTE .COMPLEX 11/16/17 08/05/19 Insulin] furosemide 20 mg tablet 20 mg PO QAM 05/08/19 08/05/19 linaclotide 72 mcg capsule 72 mcg PO DAILY 05/08/19 08/05/19 Motegrity 2 mg PO DAILY 08/05/19 08/05/19 Trulicity 0.75 mg SUBCUT WK 08/05/19 08/05/19 New Rx's Medication Instructions Recorded dicyclomine 10 mg PO TID PRN #90 cap 11/19/17 atorvastatin [Lipitor] 40 mg PO DAILY #30 tab 08/07/19 ticagrelor [Brilinta] 90 mg PO BID 30 Days #60 tab 08/07/19 - Action: The above medications, specifically ones for stroke treatment/prophylaxis, have been reviewed in detail with the patient prior to discharge. This includes indication, common adverse reactions, drug interactions, and medication administration. Medication counseling has been employed using the teach-back method to ensure understanding. - Outcome: The patient has demonstrated understanding of the medications. Additional comments: -reviewed change from Plavix to Brilinta and Crestor to Lipitor -patient expressed that she was concerned about stopping Premarin "cold turkey" as previously this did not work -spoke to physician who updated discharge to be sent to OB and I instructed patient to make appointment with OB office for quick taper of Premarin. Thank you for allowing pharmacy to be involved in the care of this patient. Please call [phone] with any additional questions
[2019-08-07] MEDS ORDERED: TICAGRELOR 90 MG TAB PO SCH (21:00)
== END 2019-08-07 16:26 | disposition home or self-care (01) ==
LOC: ED 16:16 → 2N 16:16

== ENCOUNTER 2019-09-17 06:55 | Observation (INO) ==
[2019-09-17] MEDS ORDERED: BACITRACIN INJ 50,000 UNIT VIAL ONE (07:23)
[2019-09-17] MEDS ORDERED: LIDOCAINE HCL 1% 20 ML VIAL ONE (07:23)
[2019-09-17] MEDS ORDERED: BUPIVACAINE 0.25% 30 ML VIAL ONE (07:23)
[2019-09-17] MEDS ORDERED: CLINDAMYCIN PHOS 300 MG/2 ML VIAL ONE (07:27)
[2019-09-17] MEDS ORDERED: MIDAZOLAM HCL 5 MG/ML 1 ML VIAL ONE ×2 (07:30→08:33)
[2019-09-17] MEDS ORDERED: fentaNYL citrate 100 MCG/2 ML VIAL ONE ×2 (07:30→08:33)
--- NOTE | 2019-09-17 07:47 | History & Physical Bridge Note ---
Date of Service September 17, 2019 History & Physical Bridge Note I have examined the patient, reviewed the History & Physical and in the interval since the performance of the History & Physical I have noted the following changes of clinical significance: no changes noted
--- NOTE | 2019-09-17 07:47 | Pre Anesthesia Assessment ---
Date of Service September 17, 2019 Pre Sedation Assessment Vital Signs Temp Pulse Resp BP Pulse Ox 09/17/19 07:12 36.6 C 83 20 156/79 H 100 Cardiovascular RRR, no murmur, no edema Respiratory normal respiratory effort, lungs clear to auscultation Pre-Sedation Airway Assessment Smoking Status: Never smoker Hx Sleep Apnea: No Short, Thick Neck: Yes Thyromental Distance: > or= 3.5 Finger Breadths Oral Cavity: + WNL Mallampati Class: I ASA: ASA3 NPO Status Date of Last Intake of Fluids: 09/17/19 Time of Last Intake of Fluids: 06:00 Date of Last Intake of Solid Food: 09/16/19 Time of Last Intake of Solid Foods: 23:00 Procedure Planning Contraindications for Sedation: none Current Medications Reviewed: Yes Notes The planned sedation has been discussed with the patient. Informed Consent was obtained. I have identified the patient, determined the appropriateness of sedation and have assessed the patient immediately prior to the procedure. All medicine(s) and interventions are by my order.
[2019-09-17] MEDS ORDERED: DiphenhydrAMINE HCL 50 MG/ML VIAL ONE (08:00)
[2019-09-17] MEDS ORDERED: methylPREDNISolone 125 MG/2 ML VIAL ONE (08:00)
[2019-09-17] MEDS ORDERED: NURSING DECISION MEDICATION ONE (09:56)
--- NOTE | 2019-09-17 09:56 | Post Anesthesia Assessment ---
Date of Service September 17, 2019 Post Sedation Assessment Vital Signs Temp Pulse Resp BP Pulse Ox 09/17/19 07:12 36.6 C 83 20 156/79 H 100 Recovery Score Activity: Moves 4 extremities Respiration: Deep Breath/Cough Circulation: +/-20% PreAnes Value Consciousness: Fully Awake Oxygen Saturation: > 92% On Room Air Discharge Sedation Level of Care: Fast Track Phase II Post Sedation Plan On clinical assessment, the patient appears to have tolerated the sedation without complications. Patient is recovering as anticipated. Patient will continue to be monitored by nursing and may be discharged when sedation discharge criteria are met per below protocol. Upon Completions of procedure up to 15 minutes continue every 5 minute vital signs and the P.A.R. score; then discharge to a Phase I or Fast Track to Phase II per the following guidelines: * Discharge Patient to appropriate Phase II area if PAR is 8 or greater or return to pre- procedure baseline. The post - procedure orders will be as directed. * If PAR score is less than 8 or not return to pre-procedure baseline then patient will follow Phase I monitoring till PAR is reached for Phase II. The Phase I may be done in procedure room or may call to secure a Phase I area. * If naloxone or flumazenil are used for reversal, hold in Phase I for continued monitoring from when last reversal dose was given for a minimum of 60 minutes or longer pending the nurse and/or physician discretion of patient condition before discharge to Phase II. Please call the Sedation Physician to re-evaluate and complete post-note for discharge to Phase II area. Do NOT discharge from procedure sedation or Phase 1 until post- sedation evaluation note is complete by procedure /sedation MD Sedation Discharge Instructions to be given to the patient at discharge to home.
--- NOTE | 2019-09-17 09:57 | Operative Report ---
Post Operative Report Pre & Post Diagnosis intermittent chb and syncope Operation Date: 09/17/19 08:00 <No data on this case meets the specified criteria> I identified the patient and participated in the time-out.: Yes Procedure Operation Date: 09/17/19 08:00 Actual Procedures s Bundle of his Recording - Fozia Hart DO p Pacer with A/V Leads (Dual) - Fozia Hart DO Surgeon Fozia Hart, DO Tax Intern none Estimated Blood Loss 20 Findings Consistent with Post-Op Diagnosis Specimens none Description of Procedure see official report I attest to the content of the Intraoperative Record and any orders documented therein. Any exceptions are noted below.
[2019-09-17] MEDS ORDERED: SODIUM CHLORIDE 0.65% NA SOLN 45 ML (OCEAN) PRN (09:59)
[2019-09-17] MEDS ORDERED: DICYCLOMINE HCL 10 MG CAP PO PRN (09:59)
[2019-09-17] MEDS ORDERED: LORATADINE 10 MG TAB PO PRN (09:59)
--- NOTE | 2019-09-17 10:04 | Discharge Summary ---
Date of Service September 17, 2019 Admission HPI Per Admitting Provider Pt admitted for elective ppm due to intermittent CHB and syncope Admission Exam Per Admitting Provider aaox3, NAD NC/AT, EOMI Supple No JVD Nrl S1/S2, No murmur CTA b/l no w/r/r soft nt/nd no LE edema b/l skin intact no focal deficits Principal Diagnosis Intermittent CHB s/p pacemaker Discharge Exam aaox3, NAD NC/AT, EOMI Supple No JVD Nrl S1/S2, No murmur CTA b/l no w/r/r soft nt/nd no LE edema b/l skin intact no focal deficits left pectoral incision intact, no hematoma mild ecchymosis Discharge Data Allergies Allergy/AdvReac Type Severity Reaction Status Date / Time aspirin Allergy Severe SWELLING Verified 08/26/19 13:56 doxycycline Allergy Severe Hives Verified 08/26/19 13:56 ibuprofen Allergy Severe SWELLING Verified 08/26/19 13:56 Penicillins Allergy Severe SWELLING Verified 08/26/19 13:56 iodine Allergy Mild ITCHY Verified 08/26/19 13:56 adhesive Allergy Unknown TAPE Verified 08/26/19 13:56 Bactrim Allergy Unknown unknown Verified 08/26/19 13:56 sulfamethoxazole Allergy Unknown Unknown Verified 08/26/19 13:56 trimethoprim Allergy Unknown Unknown Verified 08/26/19 13:56 Iodinated Contrast Media Allergy . Verified 08/26/19 13:56 tolmetin [From Tolectin] Allergy Unknown Verified 08/26/19 13:56 Procedures Performed Operation Date: 09/17/19 08:00 Actual Procedures s Bundle of his Recording - Fozia Hart DO p Pacer with A/V Leads (Dual) - Fozia Hart DO Ordered Studies CXR: leads in position ECG: SR Pacemaker Interrogation:Normal function; stable lead testing since implant 09/17/19 06:45 EP Lab Images for PACS ONCE Hospital Course (1) Intermittent complete heart block: Total Time Total Time Spent Total Time Spent (In Minutes): 40 Total Time Includes: Examination of the Patient, Discharge Planning, Medication Reconciliation and Other Discharge Plan Discharge Items Patient Disposition: Home - Self-Care Reason For Visit: Intermittent Complete Heart Block,DCP INSERTION Discharge Diagnosis: intermittent CHB s/p ppm Activity: As commented below Activity Comment: do not raise the left elbow over the left shoulder for 1 month Lifting: No more than 10 pounds Lifting Comment: do not lift more than 10 pounds with the left arm for 2 weeks Bathing: Keep incision dry Bathing Comment: keep dressing on and dry until wound check next week Sexual Activity: After two weeks Non-emergency contact: Milk Bottler Call non-emergency contact if: you have any medication questions Follow-up/Referrals: Pedro Aguillon MD [Primary Care Provider] - Diet: Heart Healthy Addtl Attending Provider Instructions: Device and wound check next week at [facility] cardiology Monday 09/25 either at 8:30 or 8:45am please double check the time. Pending Studies at Discharge: No Stand-Alone Forms: My [facility] Medications and DC Order Prescriptions: Continued Linzess 72 mcg capsule 72 mcg PO DAILY RF: 0 Linzess 145 mcg Capsule 145 mcg PO DAILY RF: 0 insulin aspart U-100 100 unit/mL Cartridge 1 sliding scale dose SUBCUT USEASDIRECTD RF: 0 amitriptyline 10 mg Tablet 10 mg PO HS RF: 0 enalapril maleate 20 mg Tablet 20 mg PO DAILY RF: 0 ondansetron HCl 4 mg Tablet 4 mg PO TID PRN (Reason: Nausea) RF: 0 clonazepam [Klonopin] 0.5 mg Tablet 0.5 mg PO BID RF: 0 acetaminophen-codeine [Tylenol-Codeine #3] 300-30 mg Tablet 1 tab PO Q8H PRN (Reason: Pain) RF: 0 ropinirole 2 mg Tablet 2 mg PO HS RF: 0 diphenhydramine HCl [Benadryl] 25 mg Capsule 25 mg PO Q8H PRN (Reason: Itching) RF: 0 promethazine 25 mg Tablet 25 mg PO Q6H PRN (Reason: Nausea) RF: 0 albuterol sulfate [Ventolin HFA] 90 mcg/actuation HFA aerosol inhaler 2 puff Inhalation Q4H PRN (Reason: Shortness Of Breath Or Wheezing) RF: 0 fluticasone propionate [Flonase Allergy Relief] 50 mcg/actuation [place],Suspension 2 spray INTRANASAL DAILY PRN (Reason: Allergy Symptoms) RF: 0 loratadine [Claritin] 10 mg Tablet 10 mg PO DAILY PRN (Reason: Allergic Reaction) RF: 0 metoclopramide HCl [Reglan] 10 mg Tablet 10 mg PO BIDM RF: 0 sodium chloride [[place] Nasal] 0.65 % Aerosol,[place] 2 spray INTRANASAL DIRECTED PRN (Reason: Nasal Congestion) RF: 0 insulin lispro [Humalog U-100 Insulin] 100 unit/mL Solution See Rx Instructions .ROUTE .COMPLEX RF: 0 dicyclomine 10 mg Capsule 10 mg PO TID PRN (Reason: Muscle Spasm) Qty: 90 RF: 0 furosemide [Lasix] 20 mg tablet 20 mg PO QAM RF: 0 Trulicity 0.75 mg/0.5 mL pen injector 0.75 mg SUBCUT WK RF: 0 Motegrity 2 mg tablet 2 mg PO DAILY RF: 0 Brilinta 90 mg Tablet 90 mg PO BID 30 Days Qty: 60 RF: 3 atorvastatin [Lipitor] 40 mg tablet 40 mg PO DAILY Qty: 30 RF: 3 Discharge Orders: Discharge Order (Routine); Ordered 09/18/19 Ordered By: Fozia Hart Admission Data Admit Date/Time: 09/17/19 09:15 Attending Provider: Fozia Hart Admit Provider: Fozia Hart Primary Care Provider: Pedro Aguillon
[2019-09-17] MEDS ORDERED: ONDANSETRON 4 MG OD TAB PO PRN (10:39)
[2019-09-17] MEDS ORDERED: GLUCOSE 40% GEL 15 GM TUBE PO PRN (10:45)
[2019-09-17] MEDS ORDERED: GLUCOSE 10 TABS/TUBE PO PRN (10:45)
[2019-09-17] MEDS ORDERED: DEXTROSE 50% 50 ML SYRINGE IV PRN (10:45)
[2019-09-17] MEDS ORDERED: GLUCAGON FOR INJ 1 MG VIAL IM PRN (10:45)
[2019-09-17] MEDS ORDERED: CARBOHYDRATES FOR HYPOGLYCEMIA PO PRN (10:45)
[2019-09-17] MEDS: [UNRECOGNIZED DRUG - OTHER] SCH ×2 (11:27→14:03)
[2019-09-17] MEDS: LINZESS~ORDER AWAITING ACTION SCH ×2 (11:27→14:03)
[2019-09-17] MEDS: ACETAMINOPHEN 325 MG TAB PO PRN ×2 (12:14→17:47)
--- NOTE | 2019-09-17 12:50 | Electrocardiogram Report ---
Test Reason : Blood Pressure : / mmHG Vent. Rate : 089 BPM Atrial Rate : 089 BPM P-R Int : 164 ms QRS Dur : 080 ms QT Int : 378 ms P-R-T Axes : 061 069 042 degrees QTc Int : 459 ms Normal sinus rhythm Low voltage QRS Cannot rule out Anterior infarct (cited on or before 05-AUG-2019) Abnormal ECG When compared with ECG of 05-AUG-2019 16:48, No significant change Confirmed by David Young ([id number]) on 09/17/2019 12:50:06 PM Referred By: Fozia Hart Confirmed By:David Young
[2019-09-17] MEDS: TICAGRELOR 90 MG TAB PO SCH (20:39)
[2019-09-17] MEDS: clonazePAM 0.5 MG TAB PO SCH (20:39)
[2019-09-17] MEDS: OXYCODONE/ACETAMINOPHEN 5mg/325mg TAB PO PRN (20:39)
[2019-09-17] MEDS ORDERED: AMITRIPTYLINE HCL 10 MG TAB PO SCH (21:00)
[2019-09-17] MEDS ORDERED: ROPINIROLE HCL 1 MG TABLET PO SCH (21:00)
[2019-09-18] MEDS: OXYCODONE/ACETAMINOPHEN 5mg/325mg TAB PO PRN (04:14)
[2019-09-18] MEDS: LINZESS~ORDER AWAITING ACTION SCH ×2 (04:27→08:32)
[2019-09-18] MEDS: [UNRECOGNIZED DRUG - OTHER] SCH ×2 (04:27→08:32)
--- NOTE | 2019-09-18 07:27 | XRay Report ---
XR chest 2V PA/lateral HISTORY: Pacemaker placement. COMPARISON: Chest 08/05/2019. FINDINGS: No pneumothorax. No pleural effusions. The heart is normal in size. The lungs are clear. In terval placement of a left-sided pacemaker. The leads appear intact. IMPRESSION: Interval placement of a left-sided pacemaker. No pneumothorax. ACT 112: Negative or not required by law. Electronically signed by: Antonio Zapien M.D. 09/18/2019 7:26 AM
[2019-09-18] MEDS: clonazePAM 0.5 MG TAB PO SCH (08:31)
[2019-09-18] MEDS: TICAGRELOR 90 MG TAB PO SCH (08:31)
[2019-09-18] MEDS: ACETAMINOPHEN 325 MG TAB PO PRN (08:31)
[2019-09-18] MEDS ORDERED: FUROSEMIDE 20 MG TAB PO SCH (09:00)
[2019-09-18] MEDS ORDERED: ATORVASTATIN 40 MG TAB PO SCH (09:00)
[2019-09-18] MEDS ORDERED: ENALAPRIL MALEATE 10 MG TAB PO SCH (09:00)
[2019-09-18] MEDS ORDERED: TRULICITY~ORDER AWAITING ACTION SCH (16:00)
--- NOTE | 2019-09-25 11:17 | Operative Report (OR) ---
DATE OF OPERATION: 09/17/2019 PREOPERATIVE DIAGNOSES: Intermittent complete heart block and near syncope. POSTOPERATIVE DIAGNOSES: Intermittent complete heart block and near syncope. PROCEDURE: Dual chamber permanent pacemaker (dual chamber rate responsive permanent pacemaker) with the RV lead over the left bundle position (with a peripheral venogram and intracardiac electrogram mapping of the His bundle region, all under fluoroscopic guidance), peripheral venogram. SURGEON: Fozia Hart DO. ASSISTANTS: None. ANESTHESIA: Monitored conscious sedation administered under my supervision by Ángela Luong. Start time 8:15, end time 9:52. A total of 7 mg of Versed, 175 mcg of fentanyl. INTRAVENOUS FLUIDS: 50 mL of dextrose. ANTIBIOTICS: 600 mg of clindamycin. CONTRAST: 13 mL. URINE OUTPUT: Not applicable. SPECIMENS: None. FINDINGS: See below. DRAINS: None. BLOOD LOSS: 20 mL. 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 She has a history of a mesenteric artery occlusion with stenting in 01/2017, coronary artery disease with nonobstructive disease on a catheterization in 12/2013, osteoarthritis, diabetic polyneuropathy. She has been having episodes of near syncope and wore a Zio patch monitor that showed intermittent complete heart block, so she was recommended pacemaker. CONSENT: Consent was obtained prior to the patient going into electrophysiology lab. The patient was informed of the risks, benefits and alternative of procedure. Risks include but not limited to sudden cardiac , cardiac arrhythmias, cerebrovascular accident, myocardial infarction, injury to the blood vessels, chamber of the heart, lung, bleeding, and infection. The patient understood these risks and wished to proceed with procedure as planned. Informed consent was obtained. DESCRIPTION OF THE PROCEDURE: The patient was brought into electrophysiology lab in fasting state. She was connected to continuous quality assurance monitor final. Timeout was performed to ensure patient identity and procedure correctly. The patient was prepped and draped over the left infraclavicular space in normal surgical standard fashion. Monitored conscious sedation administered throughout the procedure for patient's comfort level. [place] precautions maintained throughout the procedure. She received prophylactic antibiotics prior to incision. 10 mL of 1% lidocaine, bupivacaine mixture were given in the left deltopectoral groove. Incision was made in left deltopectoral groove. Blunt dissection was performed down to identify cephalic vein; however, none could be identified, so peripheral venogram was performed. Then a peripheral venogram identified the axillary vein. The venous axillary access was obtained through a needlestick without any problems. The guidewire was inserted without any resistance. An 8-Tongan sheath was inserted over the guidewire without any resistance. The dilator was removed and a second guidewire was inserted through the 8-Tongan sheath to allow for retained venous access. The sheath was removed. Then an 8-Tongan sheath was inserted over one of the guidewires without any resistance. Guidewire and dilator were removed. Then, the preformed His sheath was advanced into the right ventricle over a Glidewire. The Glidewire and dilator were removed. Then, I did intracardiac mapping of the His bundle region with the lead through the sheath and found the AH to 65 milliseconds and HV to be 52 milliseconds. I then went to the CHERRY 30 and marked where the His was located on my monitors and then dilip an imaginary line down to the apex from the His and marked about 2 cm below this and then I positioned my sheath and this was 2 cm below the His region location and counterclocked it for shortness sheath. Then I went to the OMANI 30 to ensure that I was up against the septum and did a little bit more counterclocking as necessary. I then screwed the lead in in short intervals while continually watching the electrograms and watched V1 turned into a more of a right bundle morphology and Stim to QRS peak on the lateral leads to decrease. Then I gave a puff of contrast to see that the sheath was up against the septum and that the lead was in the septum very nicely. Then the sheath was slit under fluoroscopic guidance. I left the outer 8-Tongan sheath in while I positioned the right atrial lead. An 8-Tongan sheath was inserted over the retained guidewire without any resistance. Guidewire and dilator removed and the right atrial lead was advanced into right atrium and positioned interatrial appendage under fluoroscopic guidance. There was adequate pacing and sensing thresholds and no diaphragmatic stimulation with high output pacing. The 8-Tongan sheath was peeled away and lead was fixated to pectoralis muscle using 0 silk suture. Then, the 8-Tongan sheath over the left bundle right ventricular lead was slit and the lead was fixated to pectoralis muscle using 0 silk suture. Then, a pacemaker pocket was created using blunt dissection over the pectoralis muscle within the pectoralis fascia. Pocket was flushed with copious amounts of bacitracin saline wash and inspected for hemostasis. The leads were then attached to the pulse generator making sure that the pins were in appropriate position, passed set screws and set screws were all tightened. The pulse generator was then placed in a Tyrx pouch followed then by being placed in the pocket, making sure that the leads were lying flat beneath the device. The incision was then closed in 3-layer fashion with 2-0 Vicryl interrupted suture followed by 3-0 Vicryl interrupted suture followed by 4-0 Monocryl running stitch and Dermabond was applied followed by a Telfa and micropore dressing. EQUIPMENT: 1. Pulse generator is a [employer] Cherri XT DR BRETT Burns [id number], serial number [id number]. 2. Right ventricular lead, Medtronic 5076-52 cm, serial number [id number]. 3. Right ventricular lead, Medtronic, 3830-69 cm, serial number [id number]. INTRAOPERATIVE TESTIN. Right atrial lead: P waves 1.8 millivolts, impedance 682 ohms, threshold 0.6 volts at 0.5 milliseconds. 2. Right ventricular lead: R waves 11.7 millivolts, impedance 824 ohms, threshold 0.8 volts at 0.5 milliseconds. FINAL MEASUREMENTS THROUGH THE DEVICE: 1. Right atrial lead: P waves 4.5 millivolts, impedance 532 ohms, threshold 0.5 volts at 0.4 milliseconds. 2. Right ventricular lead: R-wave 10.9 millivolts, impedance 665 ohms, threshold 0.75 volts at 0.4 milliseconds. FINAL PARAMETERS: MVP-R 60/130, right atrial and right ventricular amplitude 3.5 volts, pulse width 0.4 milliseconds, sensitivity 0.3 millivolts. IMPRESSION: Successful implantation of a dual chamber rate responsive permanent pacemaker (the RV lead was positioned in the left bundle region) along with peripheral venogram and intracardiac mapping of the His bundle region, all under fluoroscopic guidance secondary to syncope and intermittent complete heart block. PLAN: Monitor patient overnight, 12-lead ECG, chest x-ray. She cannot lift the left elbow or left shoulder for 1 month. She cannot lift more than 10 pounds with the left arm for 2 weeks. She is to keep the dressing on and dry until her wound check at [facility] in 1 week's time. I attest to the content of the Intraoperative Record and any orders documented therein. Any exceptions are noted below. SHANNAN
== END 2019-09-18 09:10 | disposition home or self-care (01) ==
LOC: EP 06:55 → 2S 06:55